=== PATIENT | female | born 1960 | race Caucasian/White ===

== ENCOUNTER 2018-11-20 07:55 | Emergency (ER) | payer SELFPAY ==
[2018-11-20] MEDS ORDERED: Acetaminophen 325 MG Tab PO ONE ×2 (08:10→09:08)
--- NOTE | 2018-11-20 09:00 | EDM.PDOC ---
ED HPI GENERAL MEDICAL PROBLEM - General Chief Complaint: Fever Stated Complaint: CHILLS, SHORT OF BREATH Time Seen by Provider: 11/20/18 08:30 Source of Information: Reports: Patient History Limitations: Reports: No Limitations - History of Present Illness INITIAL COMMENTS - FREE TEXT/NARRATIVE: 58-year-old female presents emergency room brought in with a friend today with complaints of fever and chills. Her symptoms began a proximally 6:30 this morning. She took 2 ibuprofen. She denies any recent illnesses. She has no nausea vomiting diarrhea abdominal pain. No sore throat denies any significant aches or pains. She does feel little short of breath. She did notice of frequent urination denies any dysuria, hematuria. She denies any current chest pain. She denies sinus congestion, ear pain. She has mild headache. Upon arrival her temperature was 101.6. She is not tachycardic. Blood pressure was mildly elevated. Onset: Today Onset Date: 11/20/18 Onset Time: 06:00 Duration: Hour(s): Location: Reports: Generalized Quality: Reports: Ache Severity: Mild Improves with: Reports: None Worsens with: Reports: None Associated Symptoms: Reports: Fever/Chills, Shortness of Breath. Denies: Chest Pain, Cough, Diaphoresis, Headaches, Nausea/Vomiting, Syncope Treatments LINING FINISHER: Reports: Acetaminophen, NSAIDS - Related Data Allergies Allergy/AdvReac Type Severity Reaction Status Date / Time No Known Allergies Allergy Verified 11/20/18 08:06 Home Meds: Home Meds Simvastatin [Zocor] 20 mg PO BEDTIME 07/31/13 [History] Acetaminophen [Tylenol Extra Strength] 1,000 mg PO Q6H PRN 11/17/13 [History] Desmopressin [Desmopressin 0.1% Nasal [place]] 1 spray NASLF BID 11/17/13 [History ] Lisinopril [Prinivil] 20 mg PO BID 11/17/13 [History] Levothyroxine [Levothroid] 137 mcg PO DAILY #30 tab 11/19/13 [Rx] Verapamil HCl [Verapamil ER] 240 mg PO DAILY 05/21/14 [History] Past Medical History HEENT History: Reports: Impaired Vision, Other (See Below) Other HEENT History: Hystiocytosis Cardiovascular History: Reports: Afib, High Cholesterol, Hypertension Respiratory History: Reports: Sleep Apnea Gastrointestinal History: Reports: None Genitourinary History: Reports: None EMERGENCY VEHICLE TECHNICIAN History: Reports: Other EMERGENCY VEHICLE TECHNICIAN History: times 2 Musculoskeletal History: Reports: Back Pain, Chronic, Other (See Below) Other Musculoskeletal History: chronic bilateral hip pain Neurological History: Reports: None Psychiatric History: Reports: Anxiety Endocrine/Metabolic History: Reports: Hypothyroidism, Obesity/BMI 30+ Hematologic History: Reports: None Immunologic History: Reports: None Oncologic (Cancer) History: Reports: Hodgkin's Lymphoma, Thyroid Dermatologic History: Reports: None - Infectious Disease History Infectious Disease History: Reports: Other (See Below) - Past Surgical History GI Surgical History: Reports: None Female Surgical History: Reports: Section Endocrine Surgical History: Reports: Thyroidectomy Social & Family History - Family History Family Medical History: Noncontributory - Tobacco Use Smoking Status *Q: Current Every Day Smoker Years of Tobacco use: 37 Packs/Tins Daily: 0.7 - Caffeine Use Caffeine Use: Reports: Coffee, Tea - Recreational Drug Use Recreational Drug Use: No - Living Situation & Occupation Living situation: Reports: Occupation: Employed ED ROS GENERAL - Review of Systems Review Of Systems: See Below Constitutional: Reports: Fever, Chills. Denies: Diaphoresis HEENT: Denies: Ear Pain, Sinus Problem, Throat Pain, Throat Swelling Respiratory: Reports: Shortness of Breath. Denies: Wheezing, Cough Cardiovascular: Reports: Blood Pressure Problem. Denies: Chest Pain, Dyspnea on Exertion Endocrine: Reports: No Symptoms GI/Abdominal: Denies: Abdominal Pain, Diarrhea, Nausea, Vomiting : Reports: Frequency. Denies: Dysuria, Hematuria, Pain Musculoskeletal: Denies: Neck Pain Skin: Reports: No Symptoms Neurological: Denies: Headache, Trouble Speaking, Weakness, Change in Speech Psychiatric: Reports: Anxiety Hematologic/Lymphatic: Reports: No Symptoms Immunologic: Reports: No Symptoms ED EXAM, GENERAL - Physical Exam Exam: See Below Exam Limited By: No Limitations General Appearance: Alert, No Apparent Distress, Obese Eye Exam: Bilateral Eye: EOMI, PERRL Ears: Normal External Exam, Normal Canal, Hearing Grossly Normal, Normal TMs Nose: Normal Inspection, Normal Mucosa Throat/Mouth: Normal Inspection, Normal Lips, Normal Oropharynx, Normal Voice, No Airway Compromise Head: Atraumatic, Normocephalic Neck: Normal Inspection, Supple, Non-Tender, Full Range of Motion, Other (Well- healed incision consistent with prior thyroidectomy). No: Lymphadenopathy (L), Lymphadenopathy (R) Respiratory/Chest: No Respiratory Distress, Lungs Clear Cardiovascular: Regular Rate, Rhythm, No Murmur Peripheral Pulses: 1+: Dorsalis Pedis (L), Dorsalis Pedis (R), 2+: Carotid (L), Carotid (R), Radial (L), Radial (R) GI/Abdominal: Normal Bowel Sounds, Soft, Non-Tender, No Organomegaly, No Distention Back Exam: Normal Inspection Extremities: Pedal Edema Neurological: Alert, Oriented, CN II-XII Intact, Normal Cognition, No Motor/ Sensory Deficits Psychiatric: Normal Affect, Normal Mood Skin Exam: Dry, Intact, Normal Color, No Rash, Increased Warmth Lymphatic: No Adenopathy Course - Vital Signs Last Recorded V/S: Last Vital Signs Temp 100.6 F 11/20/18 10:13 Pulse 93 11/20/18 08:10 Resp 20 11/20/18 08:10 BP 160/74 H 11/20/18 09:03 Pulse Ox 95 11/20/18 08:10 - Orders/Labs/Meds Labs: Laboratory Tests 11/20/18 11/20/18 11/20/18 Range/Units 08:55 08:55 09:00 WBC 14.46 H (5.00-10.00) 10^3/uL RBC 4.06 (3.80-5.50) 10^6/uL Hgb 13.7 (12.0-16.0) g/dL Hct 40.3 (37.0-47.0) % MCV 99.3 H D (82.0-92.0) fL MCH 33.7 H (27.0-31.0) pg MCHC 34.0 (32.0-36.0) g/dL RDW 13.0 (11.5-14.5) % Plt Count 241 (150-400) 10^3/uL MPV 8.8 (7.4-10.4) fL Immature Gran % (Auto) 0.2 (0.0-5.0) % Neut % (Auto) 88.1 H (50.0-70.0) % Lymph % (Auto) 4.2 L (20.0-40.0) % [place] % (Auto) 7.1 (2.0-8.0) % Eos % (Auto) 0.2 L (1.0-3.0) % Baso % (Auto) 0.2 (0.0-1.0) % Immature Gran # (Auto) 0.03 (0.00-0.50) 10^3/uL Neut # (Auto) 12.73 H (2.50-7.00) 10^3/uL Lymph # (Auto) 0.61 L (1.00-4.00) 10^3/uL [place] # (Auto) 1.03 H (0.10-0.80) 10^3/uL Eos # (Auto) 0.03 L (0.10-0.30) 10^3/uL Baso # (Auto) 0.03 (0.00-0.10) 10^3/uL Sodium 140 (136-145) mmol/L Potassium 3.9 (3.3-5.3) mmol/L Chloride 105 (98-115) mmol/L Carbon Dioxide 23.7 (21.0-32.0) mmol/L Anion Gap 15.2 H (5-15) mmol/L BUN 17 (6-25) mg/dL Creatinine 0.59 (0.51-1.17) mg/dL Est Cr Clr Drug Dosing 102.30 mL/min Estimated GFR (MDRD) > 60 mL/min Glucose 89 (75 - 99) mg/dL Calcium 9.0 (8.7-10.3) mg/dL Specimen Type . Urine Color Yellow (YELLOW) Urine Appearance Clear (CLEAR) Urine pH 7.0 (5.0-9.0) Ur Specific [place] 1.015 (1.005-1.030) Urine Protein Negative (NEGATIVE) mg/dL Urine Glucose (UA) Negative (NEGATIVE) mg/dL Urine Ketones Negative (NEGATIVE) mg/dL Urine Occult Blood Small H (NEGATIVE) Urine Nitrite Negative (NEGATIVE) Urine Bilirubin Negative (NEGATIVE) Urine Urobilinogen 0.2 (0.2-1.0) E.U./dL Ur Leukocyte Esterase Negative (NEGATIVE) Urine RBC 10-20 H (0-5) /HPF Urine WBC 0-5 (0-5) /HPF Ur Epithelial Cells Occasional /LPF Urine Bacteria Rare (NONE TO FEW) /HPF Meds: Medications Discontinued Medications Generic Name Dose Route Start Last Admin Trade Name Nalini PRN Reason Stop Dose Admin Acetaminophen 650 mg 11/20/18 08:10 11/20/18 08:15 Tylenol PO 11/20/18 08:11 650 mg NOW ONE Administration Acetaminophen 650 mg 11/20/18 09:08 11/20/18 09:10 Tylenol PO 11/20/18 09:09 650 mg NOW ONE Administration - Radiology Interpretation Free Text/Narrative:: Chest x-ray 2 views PA and lateral Discussion: Cardiomediastinal silhouette is normal in size and contour. No infiltrate, effusion, pneumothorax, or edema Impression: Negative examination of the chest - Re-Assessments/Exams Free Text/Narrative Re-Assessment/Exam: 11/20/18 10:24 Patient's temperature is now 100.6 with a Tylenol. She is no longer experiencing chills. Departure - Departure Time of Disposition: 10:26 Disposition: Home, Self-Care 01 Condition: Good Clinical Impression: Fever and chills, Neutrophilic leukocytosis, Upper respiratory infection, acute - Discharge Information Instructions: Fever, Adult, Upper Respiratory Infection, Adult, [id number] Referrals: PCP,Unknown [Primary Care Provider] - Forms: ED Department Discharge - Assessment/Plan Assessment:: Neutrophilic leukocytosis Fever Probable upper respiratory infection Plan: 1. Tylenol thousand milligrams every 6-8 hours for fevers. 2. Ibuprofen 800 mg every 8 hours for aches, pains, or fevers. 3. Z-Hugh 2 by mouth today 1 by mouth for the next 4 days. 4. Continue with the oral hydration. 5. Rest 6. Follow-up your primary care next week if symptoms do not seem to be improving.
[2018-11-20 09:09] VITALS: BP 160/74
[2018-11-20 09:25] LABS: ANION GAP 15.2 mmol/L (5-15); CHLORIDE,CL 105 mmol/L (98-115); SODIUM,NA 140 mmol/L (136-145)
--- NOTE | 2018-11-20 10:54 | CR ---
[id number] RAD/RAD Chest PA And Lateral EXAM: RAD Chest PA And Lateral INDICATION: FEVER, SOB COMPARISON: July 2013. DISCUSSION: Cardiomediastinal silhouette is normal in size and contour. No infiltrate, effusion, pneumothorax, or edema. IMPRESSION: Negative examination of the chest. Ramesh Sandoval MD 11/20/18 1053 Thank you for allowing us to participate in the care of your patient.
== END 2018-11-20 10:23 | disposition home or self-care (01) ==
LOC: KA.ED 07:55
DX: J06.9 Acute upper respiratory infection, unspecified (principal); D72.829 Elevated white blood cell count, unspecified; I10 Essential (primary) hypertension; I48.91 Unspecified atrial fibrillation; E03.9 Hypothyroidism, unspecified; E66.9 Obesity, unspecified; F17.210 Nicotine dependence, cigarettes, uncomplicated; Z79.899 Other long term (current) drug therapy; Z85.71 Personal history of Hodgkin lymphoma
CPT/HCPCS: 36415; 71046; 80048; 81001; 85025; 99283; A9270

== ENCOUNTER 2020-10-21 17:10 | Emergency (ER) | payer BC ==
[2020-10-21 17:21] VITALS: BP 114/68; PULSE 87
--- NOTE | 2020-10-21 17:36 | EDM.PDOC ---
ED HPI GENERAL MEDICAL PROBLEM - General Chief Complaint: Allergic Reaction Stated Complaint: FEVER Time Seen by Provider: 10/21/20 17:14 Source of Information: Reports: Patient History Limitations: Reports: No Limitations - History of Present Illness INITIAL COMMENTS - FREE TEXT/NARRATIVE: Patient presents with itchy rash on upper arms, upper back, abdomen, chest, perineum for 4 days. She also has a fever the last two days. She has had a little dyspnea and is scheduled for a chemical stress test tomorrow in [place]. She had jaw tightness earlier today that resolved. No other new symptoms in chest, neck, shoulder or arms. She says the skins feels like past episodes of cellulitis in her legs. She thinks it must be an allergic reaction but can't think of anything she has changed or used recently. She has tried Benadryl without much help. Treatments COMMISSIONING ENGINEER: Reports: Other Medication(s) - Related Data Allergies Allergy/AdvReac Type Severity Reaction Status Date / Time No Known Allergies Allergy Verified 10/21/20 17:14 Home Meds: Home Meds Simvastatin [Zocor] 20 mg PO BEDTIME 07/31/13 [History] Acetaminophen [Tylenol Extra Strength] 1,000 mg PO Q6H PRN 11/17/13 [History] Desmopressin [Desmopressin 0.1% Nasal [place]] 1 spray NASLF BID 11/17/13 [History] lisinopriL [Prinivil] 20 mg PO BID 11/17/13 [History] Levothyroxine [Levothroid] 137 mcg PO DAILY #30 tab 11/19/13 [Rx] Verapamil HCl [Verapamil ER] 240 mg PO DAILY 05/21/14 [History] amLODIPine [Norvasc] 10 mg PO DAILY 10/21/20 [History] Past Medical History HEENT History: Reports: Impaired Vision, Other (See Below) Other HEENT History: Hystiocytosis Cardiovascular History: Reports: Afib, High Cholesterol, Hypertension Respiratory History: Reports: Sleep Apnea Gastrointestinal History: Reports: None Genitourinary History: Reports: None DEVIL TENDER History: Reports: Other DEVIL TENDER History: times 2 Musculoskeletal History: Reports: Back Pain, Chronic, Other (See Below) Other Musculoskeletal History: chronic bilateral hip pain Neurological History: Reports: None Psychiatric History: Reports: Anxiety Endocrine/Metabolic History: Reports: Hypothyroidism, Obesity/BMI 30+ Hematologic History: Reports: None Immunologic History: Reports: None Oncologic (Cancer) History: Reports: Hodgkin's Lymphoma, Thyroid Dermatologic History: Reports: None - Infectious Disease History Infectious Disease History: Reports: Other (See Below) - Past Surgical History GI Surgical History: Reports: None Female Surgical History: Reports: Section Endocrine Surgical History: Reports: Thyroidectomy Social & Family History - Family History Family Medical History: No Pertinent Family History - Caffeine Use Caffeine Use: Reports: Coffee, Tea - Living Situation & Occupation Living situation: Reports: Occupation: Employed ED ROS ALLERGIC REACTION - Review of Systems Review Of Systems: See Below Constitutional: Reports: Fever. Denies: Chills, Malaise, Weakness HEENT: Reports: Other (no airway difficulty). Denies: Ear Pain, Throat Pain, Vision Change Respiratory: Reports: Shortness of Breath Cardiovascular: Denies: Chest Pain, Lightheadedness, Syncope GI/Abdominal: Denies: Abdominal Pain, Diarrhea, Vomiting : Denies: Dysuria, Flank Pain Musculoskeletal: Denies: Neck Pain, Shoulder Pain, Arm Pain, Back Pain, Hand Pain Skin: Denies: Cyanosis, Jaundice, Mottled, Pallor, Diaphoresis Neurological: Denies: Confusion, Dizziness, Headache, Seizure, Syncope, Trouble Speaking (except when her jaw was tight), Difficulty Walking Psychiatric: Denies: Agitation, Anxiety, Confusion ED EXAM GENERAL NO PERIP PULSE - Physical Exam Exam: See Below Exam Limited By: No Limitations General Appearance: Alert, WD/WN, No Apparent Distress Eye Exam: Bilateral Eye: EOMI, Normal Inspection, PERRL Ears: Normal External Exam, Hearing Grossly Normal Nose: Normal Inspection, No Blood Throat/Mouth: Normal Inspection, Normal Lips, Normal Voice, No Airway Compromise Head: Atraumatic, Normocephalic Neck: Normal Inspection, Full Range of Motion Respiratory/Chest: No Respiratory Distress, Lungs Clear, Normal Breath Sounds, No Accessory Muscle Use. No: Crackles, Rales, Rhonchi, Wheezing, Stridor Cardiovascular: Regular Rate, Rhythm, Systolic Murmur (mild) GI/Abdominal: Normal Bowel Sounds, Soft, Non-Tender, No Organomegaly, No Distention Back Exam: Normal Inspection, Full Range of Motion. No: CVA Tenderness (L), CVA Tenderness (R) Extremities: Normal Inspection, Normal Range of Motion, Non-Tender Neurological: Alert, Oriented, Normal Cognition, No Motor/Sensory Deficits Psychiatric: Normal Affect, Normal Mood Skin Exam: Warm, Dry, Intact, Rash (erythematous, maculopapular, rash with appearance in some places of urticaria (posterior upper arms/axillae)). No: Mottled, Pallor, Petechiae Course - Vital Signs Last Recorded V/S: Last Vital Signs Temp 103.4 F H 10/21/20 19:53 Pulse 87 10/21/20 17:15 Resp 20 10/21/20 17:15 BP 114/68 10/21/20 17:15 Pulse Ox 95 10/21/20 17:15 - Orders/Labs/Meds Orders: Active Orders 24 hr Category Date Time Status Chest 2V [CR] Stat Exams 10/21/20 17:30 Ordered Labs: Laboratory Tests 10/21/20 10/21/20 10/21/20 Range/Units 17:55 18:41 18:41 WBC 7.72 (5.00-10.00) 10^3/uL RBC 4.46 (3.80-5.50) 10^6/uL Hgb 14.6 (12.0-16.0) g/dL Hct 43.8 (37.0-47.0) % MCV 98.2 H (82.0-92.0) fL MCH 32.7 H (27.0-31.0) pg MCHC 33.3 (32.0-36.0) g/dL RDW 13.1 (11.5-14.5) % Plt Count 197 (150-400) 10^3/uL MPV 8.4 (7.4-10.4) fL Immature Gran % (Auto) 0.3 (0.0-5.0) % Neut % (Auto) 77.9 H (50.0-70.0) % Lymph % (Auto) 11.7 L (20.0-40.0) % [place] % (Auto) 7.9 (2.0-8.0) % Eos % (Auto) 2.1 (1.0-3.0) % Baso % (Auto) 0.1 (0.0-1.0) % Neut # (Auto) 6.02 (2.50-7.00) 10^3/uL Lymph # (Auto) 0.90 L (1.00-4.00) 10^3/uL [place] # (Auto) 0.61 (0.10-0.80) 10^3/uL Eos # (Auto) 0.16 (0.10-0.30) 10^3/uL Baso # (Auto) 0.01 (0.00-0.10) 10^3/uL Immature Gran # (Auto) 0.02 (0.00-0.50) 10^3/uL Sodium 139 (136-145) mmol/L Potassium 3.8 (3.5-5.1) mmol/L Chloride 100 (98-107) mmol/L Carbon Dioxide 27.0 (21.0-32.0) mmol/L Anion Gap 15.8 H (5-15) mmol/L BUN 11 (7-18) mg/dL Creatinine 0.79 (0.51-1.17) mg/dL Est Cr Clr Drug Dosing 77.35 mL/min Estimated GFR (MDRD) > 60 mL/min Glucose 92 (70-140) mg/dL Calcium 9.1 (8.7-10.3) mg/dL Troponin I High Sens 6.400 (0-51.000) pg/mL Specimen Type Urincc Urine Color Dark yellow H (YELLOW) Urine Appearance Clear (CLEAR) Urine pH 6.0 (5.0-9.0) Ur Specific [place] 1.020 (1.005-1.030) Urine Protein Trace H (NEGATIVE) mg/dL Urine Glucose (UA) Negative (NEGATIVE) mg/dL Urine Ketones Negative (NEGATIVE) mg/dL Urine Occult Blood Moderate H (NEGATIVE) Urine Nitrite Negative (NEGATIVE) Urine Bilirubin Small H (NEGATIVE) Urine Urobilinogen 2.0 H (0.2-1.0) E.U./dL Ur Leukocyte Esterase Negative (NEGATIVE) Urine RBC 0-5 (0-5) /HPF Urine WBC 5-10 H (0-5) /HPF Ur Epithelial Cells Moderate H /LPF Amorphous Sediment Few (0/HPF) /HPF Urine Bacteria Rare (NONE TO FEW) /HPF Meds: Medications Discontinued Medications Generic Name Dose Route Start Last Admin Trade Name Freq PRN Reason Stop Dose Admin Acetaminophen 1,000 mg 10/21/20 19:44 10/21/20 19:53 Acetaminophen 500 Mg Tab PO 10/21/20 19:45 1,000 mg ONETIME ONE Administration Cephalexin 1,500 mg 10/21/20 19:44 10/21/20 19:51 Cephalexin 250 Mg Cap PO 10/21/20 19:45 500 mg ONETIME ONE Administration Diphenhydramine HCl 25 mg 10/21/20 19:50 10/21/20 19:56 Diphenhydramine 25 Mg Cap PO 10/21/20 19:51 25 mg ONETIME ONE Administration Lorazepam 0.5 mg 10/21/20 18:07 10/21/20 18:38 Lorazepam 0.5 Mg Tab PO 10/21/20 18:08 0.5 mg ONETIME ONE Administration Prednisone 40 mg 10/21/20 19:44 10/21/20 19:52 Prednisone 20 Mg Tab PO 10/21/20 19:45 40 mg ONETIME ONE Administration - Re-Assessments/Exams Free Text/Narrative Re-Assessment/Exam: 10/21/20 19:56 WBC 7.7, normal BMP, 5-10 WBCs in urine but no other evidence of a UTI. Patient's temp went up to 103 and she is still very itchy. She is finishing a bottle of water and we will give a second with some meds. Giving Tylenol 1000mg, Benadryl 25mg, Prednisone 40 mg, and Cephalexin 500 mg. I don't see any definite cellulitis and WBC is normal but will cover a possible developing cellulitis with her fever and history of cellulitis that felt similar to today. The itchy rash will hopefully respond to the steroid and Benadryl. Will have her follow up tomorrow in clinic for recheck if fever isn't improving. Discussed findings and treatment plan with patient. 10/21/20 20:05 Rxs for Prednisone 20 mg #10, 2 po qd x 5, Cephalexin 500 mg #30, 1 po q8h x 10 days. 10/21/20 20:18 Oral temp now 102.2 and patient feels ready to go home. She is discharged to home in stable condition. Departure - Departure Time of Disposition: 20:18 Disposition: Home, Self-Care 01 Condition: Good Clinical Impression: Acute maculopapular rash, Pruritic erythematous rash, Fever and chills - Discharge Information Instructions: Rash, Adult, [id number] Referrals: Eleni Maddox, HVAC OPERATIONS TECHNICIAN [Primary Care Provider] - Forms: ED Department Discharge Additional Instructions: Drink at least 8 cups of water daily. Take the medications as directed. Follow up tomorrow with your PCP if the fever isn't improving or if other symptoms are not improving yet. Return to ER if worsening before you can see your PCP. Sepsis Event Note (ED) - Evaluation Sepsis Screening Result: No Definite Risk - Focused Exam Vital Signs: Vital Signs Temp Temp Pulse Resp BP Pulse Ox 10/21/20 19:53 103.4 F H 10/21/20 17:15 101.4 F H 87 20 114/68 95 - My Orders Last 24 Hours: My Active Orders 10/21/20 17:30 Chest 2V [CR] Stat - Assessment/Plan Last 24 Hours: My Active Orders 10/21/20 17:30 Chest 2V [CR] Stat
[2020-10-21] MEDS ORDERED: LORazepam 0.5 MG Tab PO ONE (18:07)
[2020-10-21 19:09] LABS: ANION GAP 15.8 mmol/L (5-15); CHLORIDE,CL 100 mmol/L (98-107); SODIUM,NA 139 mmol/L (136-145)
[2020-10-21] MEDS ORDERED: Acetaminophen 500 MG Tab PO ONE (19:44)
[2020-10-21] MEDS ORDERED: Cephalexin 250 MG Cap PO ONE (19:44)
[2020-10-21] MEDS ORDERED: predniSONE 20 MG Tab PO ONE (19:44)
[2020-10-21] MEDS ORDERED: diphenhydrAMINE 25 MG Cap PO ONE (19:50)
== END 2020-10-21 20:30 | disposition home or self-care (01) ==
LOC: KA.ED 17:10
DX: R23.8 Other skin changes (principal); R50.9 Fever, unspecified; I48.91 Unspecified atrial fibrillation; E78.00 Pure hypercholesterolemia, unspecified; I10 Essential (primary) hypertension; E03.9 Hypothyroidism, unspecified; E66.9 Obesity, unspecified; Z68.41 Body mass index [BMI] 40.0-44.9, adult; Z79.899 Other long term (current) drug therapy
CPT/HCPCS: 36415; 71046; 80048; 81001; 84484; 85025; 99283-25; 99284; A9270-GY; J7512

== ENCOUNTER 2020-10-23 17:35 | Observation (INO) | payer BC ==
[2020-10-23] MEDS ORDERED: Sodium Chloride 0.9% 10 ML Syringe FLUSH PRN (17:39)
[2020-10-23] MEDS ORDERED: Metoprolol Tartrate 5 MG/5 ML SDV IVPUSH ONE ×2 (17:41→18:30)
--- NOTE | 2020-10-23 17:43 | EDM.PDOC ---
ED HPI GENERAL MEDICAL PROBLEM - General Chief Complaint: Cardiovascular Problem Stated Complaint: chest pain Time Seen by Provider: 10/23/20 17:39 Source of Information: Reports: Patient - History of Present Illness INITIAL COMMENTS - FREE TEXT/NARRATIVE: Eleni, 60-year-old female, presents via ambulance from the [facility] here in [place] after she was being seen for chest pressure. She had been initially running fever and not feeling well today, stating her heart "was flip-flopping". She was advised to seek immediate treatment but deferred that to present to her provider at the clinic this afternoon. Covid screening negative. She presents via ambulance after they were unsuccessful with IV start and blood draw secondary of vascular access. She had cardiac ablation roughly 5 years ago and stated initially doing very well, with the last few years having more issues but, remaining in sinus. She had been seen in the clinic in September secondary of some questionable cardiac issues at which time her EKG showed ST depression and was scheduled for a stress test. This test was to be done yesterday and secondary of her not feeling well it was deferred and rescheduled. Today she presents with EKG changes and sequela of sinus tachycardia with T wave inversion in some leads. She had been treated with baby aspirin and nitroglycerin x1 in the clinic which seemingly resolved her discomfort and made her hypotensive. Blood pressure was 92/63. Onset: Today, Sudden Duration: Hour(s):, Getting Worse Location: Reports: Chest legs Pain Score (Numeric/FACES): 6 - Related Data Allergies Allergy/AdvReac Type Severity Reaction Status Date / Time adhesive Allergy Mild Rash Verified 10/23/20 18:05 Home Meds: Home Meds Acetaminophen [Tylenol Extra Strength] 1,000 mg PO Q6H PRN 11/17/13 [History] Desmopressin [Desmopressin 0.1% Nasal [place]] 1 spray NASRT BID 11/17/13 [History] lisinopriL [Prinivil] 40 mg PO BID 11/17/13 [History] Verapamil HCl [Verapamil ER] 240 mg PO DAILY 05/21/14 [History] Diclofenac Sodium [Voltaren] 75 mg PO BID PRN 10/23/20 [History] Levothyroxine 125 mcg PO ACBREAKFAST 10/23/20 [History] Simvastatin [Zocor] 20 mg PO BEDTIME 10/23/20 [History] amLODIPine Besylate [Norvasc] 2.5 mg PO DAILY 10/23/20 [History] cephALEXin [Keflex] 500 mg PO Q8H 10/23/20 [History] diphenhydrAMINE [Benadryl] 50 mg PO Q6HR PRN 10/23/20 [History] Past Medical History HEENT History: Reports: Impaired Vision, Other (See Below) Other HEENT History: Hystiocytosis Cardiovascular History: Reports: Afib, High Cholesterol, Hypertension, Other (See Below) (Ablation for a-fib 12-06-2013) Respiratory History: Reports: Sleep Apnea Gastrointestinal History: Reports: None Genitourinary History: Reports: None 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 Musculoskeletal History: Reports: Back Pain, Chronic, Other (See Below) Other Musculoskeletal History: chronic bilateral hip pain Neurological History: Reports: None Psychiatric History: Reports: Anxiety Endocrine/Metabolic History: Reports: Hypothyroidism, Obesity/BMI 30+, Other (See Below) (diabetes insipidus treated with DDAVP) Hematologic History: Reports: None Immunologic History: Reports: None Oncologic (Cancer) History: Reports: Hodgkin's Lymphoma, Thyroid Dermatologic History: Reports: Chronic Cellulitis - Infectious Disease History Infectious Disease History: Reports: Chicken Pox, Mumps, Other (See Below) (Borrelia burgdorferi (Lyme disease)) - Past Surgical History Cardiovascular Surgical History: Reports: Cardiac Ablation GI Surgical History: Reports: None Female Surgical History: Reports: Section Endocrine Surgical History: Reports: Thyroidectomy Social & Family History - Family History Family Medical History: No Pertinent Family History - Tobacco Use Tobacco Use Within Last Twelve Months: No - Caffeine Use Caffeine Use: Reports: Coffee, Tea - Living Situation & Occupation Living situation: Reports: Occupation: Employed ED ROS GENERAL - Review of Systems Review Of Systems: Comprehensive ROS is negative, except as noted in HPI. Constitutional: Reports: Fever Cardiovascular: Reports: Palpitations ED EXAM, GENERAL - Physical Exam Exam: See Below Free Text/Narrative:: Alert, oriented, in mild distress. She arrives per ambulance with all staff present in the department upon her arrival. HEENT is negative to discharge or deformity. PERRLA no icterus no injection. [place] moist mucous membranes. Neck is soft supple with no lymphadenopathy I do not appreciate JVD nor bruit. Thorax overall clear with fine rhonchi. Cardiac is S1-S2 tachycardic in the 1 20-1 30 range. Abdomen is rotund soft no tenderness with active bowel sounds. There is +1 edema to the lower extremities with chronic vascular color changes left greater than right. Negative Tom's sign bilateral. There is a maculopapular reddened rash present to the forearms and parts of the trunk as well as lower extremity. She states this is not pruritic today. rectal was deferred. #1 Interpretation EKG Date: 10/23/20 Time: 17:44 Rhythm: NSR Rate (Beats/Min): 134 [place]: Other P-Wave: Present QRS: Normal ST-T: Depressed QT: Normal Comparison: Change From Previous EKG (compared to [facility] today prio to arrival) #2 Interpretation EKG Date: 10/23/20 Time: 20:10 Rhythm: NSR Rate (Beats/Min): 129 Comparison: Change From Previous EKG Course - Vital Signs Last Recorded V/S: Last Vital Signs Temp 100.5 F 10/23/20 20:44 Pulse 129 H 10/23/20 20:44 Resp 28 H 10/23/20 20:44 BP 130/86 10/23/20 19:59 Pulse Ox 93 L 10/23/20 20:44 - Orders/Labs/Meds Orders: Active Orders 24 hr Category Date Time Status Oxygen Therapy [RC] PRN Care 10/23/20 17:39 Active Peripheral IV Care [RC] . DIRECTED Care 10/23/20 17:40 Active Enoxaparin [Lovenox] Med 10/23/20 21:00 Active 100 mg SUBCUT Q12H Sodium Chloride 0.9% [Normal Saline] 1,000 ml Med 10/23/20 20:32 Active IV .BOLUS Sodium Chloride 0.9% [Normal Saline] 100 ml Med 10/23/20 19:45 Active IV ASDIRECTED Sodium Chloride 0.9% [Saline Flush] Med 10/23/20 17:39 Active 10 ml FLUSH Q8HR PRN Peripheral IV Insertion Adult [OM.PC] Routine Oth 10/23/20 17:39 Ordered EKG 12 Lead [EK] Urgent Ther 10/23/20 17:39 Stop Req EKG 12 Lead [EK] Urgent Ther 10/23/20 20:07 Stop Req Medication Orders Acetaminophen (Acetaminophen 500 Mg Tab) 1,000 mg PO Q6H PRN PRN Reason: Fever Greater Than 101 Acetaminophen (Acetaminophen 500 Mg Tab) 1,000 mg PO Q6H PRN PRN Reason: Pain Diphenhydramine HCl (Diphenhydramine 25 Mg Cap) 50 mg PO Q6HR PRN PRN Reason: Itching Enoxaparin Sodium (Enoxaparin 100 Mg/1 Ml Syringe) 100 mg SUBCUT Q12H YAJAIRA Sodium Chloride (Normal Saline) 100 mls @ 200 mls/hr IV ASDIRECTED YAJAIRA Last Admin: 10/23/20 19:07 Dose: 200 mls/hr Documented by: MODE Sodium Chloride (Normal Saline) 1,000 mls @ 999 mls/hr IV .BOLUS ONE Stop: 10/23/20 21:32 Last Admin: 10/23/20 20:43 Dose: 999 mls/hr Documented by: [id number] Diltiazem HCl 125 mg/ Sodium (Chloride) 125 mls @ 5 mls/hr IV TITRATE YAJAIRA Metoprolol Succinate (Metoprolol Succinate 50 Mg Tab.Er) 50 mg PO ONETIME ONE Stop: 10/24/20 21:16 Non-Formulary Medication (Desmopressin) 1 spray NASRT BID YAJAIRA Non-Formulary Medication (Levothyroxine [Levothyroxine]) 125 mcg PO ACBREAKFAST YAJAIRA Sodium Chloride (Sodium Chloride 0.9% 10 Ml Syringe) 10 ml FLUSH Q8HR PRN PRN Reason: keep vein open Labs: Laboratory Tests 10/23/20 10/23/20 10/23/20 Range/Units 18:00 18:00 18:00 WBC 10.66 H (5.00-10.00) 10^3/uL RBC 4.83 (3.80-5.50) 10^6/uL Hgb 15.8 (12.0-16.0) g/dL Hct 45.7 (37.0-47.0) % MCV 94.6 H D (82.0-92.0) fL MCH 32.7 H (27.0-31.0) pg MCHC 34.6 (32.0-36.0) g/dL RDW 12.9 (11.5-14.5) % Plt Count 218 (150-400) 10^3/uL MPV 8.9 (7.4-10.4) fL Add Manual Diff Yes Neutrophils % (Manual) 83 H (50-70) % Lymphocytes % (Manual) 9 L (20-40) % Monocytes % (Manual) 2 (2-8) % Eosinophils % (Manual) 6 H (1-3) % Absolute Neutrophils 8.8478 Lymphocytes # (Manual) 0.9594 Monocytes # (Manual) 0.2132 Eosinophils # (Manual) 0.6396 APTT (22.8-31.4) SEC D-Dimer, Quantitative 3460 H (<400) ng/mL Sodium 133 L (136-145) mmol/L Potassium 4.0 (3.5-5.1) mmol/L Chloride 97 L (98-107) mmol/L Carbon Dioxide 23.8 (21.0-32.0) mmol/L Anion Gap 16.2 H (5-15) mmol/L BUN 13 (7-18) mg/dL Creatinine 0.79 (0.51-1.17) mg/dL Est Cr Clr Drug Dosing 77.35 mL/min Estimated GFR (MDRD) > 60 mL/min Glucose 75 (70-140) mg/dL Calcium 9.4 (8.7-10.3) mg/dL Total Bilirubin 0.5 (0.2-1.0) mg/dL AST 15 (15-37) U/L ALT 28 (14-63) U/L Alkaline Phosphatase 131 H (46-116) U/L Troponin I High Sens 10.500 (0-51.000) pg/mL Total Protein 8.1 (6.4-8.2) g/dL Albumin 3.52 (3.40-5.00) g/dL 10/23/20 Range/Units 18:00 WBC (5.00-10.00) 10^3/uL RBC (3.80-5.50) 10^6/uL Hgb (12.0-16.0) g/dL Hct (37.0-47.0) % MCV (82.0-92.0) fL MCH (27.0-31.0) pg MCHC (32.0-36.0) g/dL RDW (11.5-14.5) % Plt Count (150-400) 10^3/uL MPV (7.4-10.4) fL Add Manual Diff Neutrophils % (Manual) (50-70) % Lymphocytes % (Manual) (20-40) % Monocytes % (Manual) (2-8) % Eosinophils % (Manual) (1-3) % Absolute Neutrophils Lymphocytes # (Manual) Monocytes # (Manual) Eosinophils # (Manual) APTT 20.7 L (22.8-31.4) SEC D-Dimer, Quantitative (<400) ng/mL Sodium (136-145) mmol/L Potassium (3.5-5.1) mmol/L Chloride (98-107) mmol/L Carbon Dioxide (21.0-32.0) mmol/L Anion Gap (5-15) mmol/L BUN (7-18) mg/dL Creatinine (0.51-1.17) mg/dL Est Cr Clr Drug Dosing mL/min Estimated GFR (MDRD) mL/min Glucose (70-140) mg/dL Calcium (8.7-10.3) mg/dL Total Bilirubin (0.2-1.0) mg/dL AST (15-37) U/L ALT (14-63) U/L Alkaline Phosphatase (46-116) U/L Troponin I High Sens (0-51.000) pg/mL Total Protein (6.4-8.2) g/dL Albumin (3.40-5.00) g/dL Meds: Medications Generic Name Dose Route Start Last Admin Trade Name Freq PRN Reason Stop Dose Admin Acetaminophen 1,000 mg 10/23/20 21:04 Acetaminophen 500 Mg Tab PO Q6H PRN Fever Greater Than 101 Acetaminophen 1,000 mg 10/23/20 21:12 Acetaminophen 500 Mg Tab PO Q6H PRN Pain Diphenhydramine HCl 50 mg 10/23/20 21:12 Diphenhydramine 25 Mg Cap PO Q6HR PRN Itching Enoxaparin Sodium 100 mg 10/23/20 21:00 Enoxaparin 100 Mg/1 Ml Syringe SUBCUT Q12H YAJAIRA Sodium Chloride 100 mls @ 200 mls/hr 10/23/20 19:45 10/23/20 19:07 Normal Saline IV 200 mls/hr ASDIRECTED YAJAIRA Administration Sodium Chloride 1,000 mls @ 999 mls/hr 10/23/20 20:32 10/23/20 20:43 Normal Saline IV 10/23/20 21:32 999 mls/hr .BOLUS ONE Administration Diltiazem HCl 125 mg/ Sodium 125 mls @ 5 mls/hr 10/23/20 21:15 Chloride IV TITRATE YAJAIRA 5 MG/HR Metoprolol Succinate 50 mg 10/24/20 21:15 Metoprolol Succinate 50 Mg Tab.Er PO 10/24/20 21:16 ONETIME ONE Non-Formulary Medication 1 spray 10/24/20 09:00 Desmopressin NASRT BID YAJAIRA Non-Formulary Medication 125 mcg 10/24/20 07:30 Levothyroxine [Levothyroxine] PO ACBREAKFAST YAJAIRA Sodium Chloride 10 ml 10/23/20 17:39 Sodium Chloride 0.9% 10 Ml Syringe FLUSH Q8HR PRN keep vein open Discontinued Medications Generic Name Dose Route Start Last Admin Trade Name Freq PRN Reason Stop Dose Admin Acetaminophen 1,000 mg 10/23/20 19:24 10/23/20 19:27 Acetaminophen 500 Mg Tab PO 10/23/20 19:25 1,000 mg ONETIME ONE Administration Diltiazem HCl 20 mg 10/23/20 21:08 Diltiazem 25 Mg/5 Ml Sdv IVPUSH 10/23/20 21:09 ONETIME ONE Diphenhydramine HCl 50 mg 10/23/20 21:03 Diphenhydramine 25 Mg Cap PO 10/23/20 21:04 ONETIME ONE Hydrocortisone Sodium Succinate 100 mg 10/23/20 21:16 Hydrocortisone Sodium Succinate 100 Mg/2 Ml Sdv IVPUSH 10/23/20 21:17 ONETIME ONE Diltiazem HCl 125 mg/ Sodium 125 mls @ 20 mls/hr 10/23/20 21:00 Chloride IV TITRATE YAJAIRA 20 MG/HR Iopamidol 75 ml 10/23/20 19:33 10/23/20 19:07 Iopamidol 755 Mg/Ml 75 Ml Bottle IVPUSH 10/23/20 19:34 75 ml ONETIME ONE Administration Metoprolol Tartrate 2.5 mg 10/23/20 17:41 10/23/20 18:14 Metoprolol Tartrate 5 Mg/5 Ml Sdv IVPUSH 10/23/20 17:42 2.5 mg ONETIME ONE Administration Metoprolol Tartrate 5 mg 10/23/20 18:30 10/23/20 18:40 Metoprolol Tartrate 5 Mg/5 Ml Sdv IVPUSH 10/23/20 18:31 5 mg ONETIME ONE Administration - Radiology Interpretation Free Text/Narrative:: Chest x-ray negative for any acute cardiopulmonary abnormalities. CT Results Date: 10/23/20 (No evidence of PE, infiltrate, nodule nor mass.) CT Results Time: 19:56 - Re-Assessments/Exams Free Text/Narrative Re-Assessment/Exam: 10/23/20 18:11 Unsuccessful IV attempts for blood draws as well as IV start per [facility] presentation. 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 10/23/20 18:33 Initial Lopressor 2.5 mg slowed heart rate into the 1 teens to 120s showing what appears to be sinus tachycardia with ectopic beats/PACs. No evidence of atrial fibrillation. Heart rate remains tachycardic at this time and consideration for a 5 mg IV dose of Lopressor as her heart rate is 130 with a blood pressure 119/86 and saturations of 94%. Prior to this note when reassessed she states that she is feeling easier to breathe but still feels her heart beating rapidly although it seems to be more stable. Free Text/Narrative Re-Assessment/Exam: 10/23/20 20:07 No evidence of PE,, infiltrate, nodule nor mass. Heart rate increased again after Lopressor therapy, questionable A-Fib 10/23/20 20:22 Eleni recalls tick bite in September of this year after hunting. Previous Lyme diagnosis 25 years ago. Departure - Departure Time of Disposition: 21:17 Disposition: Refer to Observation Condition: Good Clinical Impression: Electrolyte imbalance, ST segment changes on electrocardiogram, Elevated d- dimer, Tachycardia, Fever and chills, COVID-19 ruled out by laboratory testing - Discharge Information *PRESCRIPTION DRUG MONITORING PROGRAM REVIEWED*: Not Applicable *COPY OF PRESCRIPTION DRUG MONITORING REPORT IN PATIENT JALEESA: Not Applicable Sepsis Event Note (ED) - Focused Exam Vital Signs: Vital Signs Temp Temp Pulse Pulse Resp BP BP 10/23/20 20:44 100.5 F 129 H 28 H 10/23/20 19:59 102.2 F H 130 H 22 H 130/86 10/23/20 19:57 102.2 F H 10/23/20 19:50 129 H 25 H 130/86 10/23/20 19:30 100.9 F H 123 H 24 H 128/85 10/23/20 19:27 100.9 F H 10/23/20 18:55 99.5 F 10/23/20 18:46 120 H 14 133/90 10/23/20 18:40 134 H 119/86 10/23/20 18:20 128 H 17 103/65 10/23/20 18:14 139 H 130/88 10/23/20 17:52 97 F 134 H 21 H 118/73 10/23/20 17:41 132 H 24 H 115/83 10/23/20 17:39 Pulse Ox Pulse Ox 10/23/20 20:44 93 L 10/23/20 19:59 94 L 10/23/20 19:57 10/23/20 19:50 95 10/23/20 19:30 95 10/23/20 19:27 10/23/20 18:55 10/23/20 18:46 93 L 10/23/20 18:40 10/23/20 18:20 93 L 10/23/20 18:14 10/23/20 17:52 96 10/23/20 17:41 97 10/23/20 17:39 96 ED Communication - ED Communication Date/Time Date: 10/23/20 Time Called: 20:23 - Discussed Case With (1) Discussed Case With (1): Other Provider Person/s Notified (1): Helen Latham - Discussed Case With (2) Discussed Case With (2): Admitting Provider Person/s Notified (3): Ailyn Molina Date: 10/23/20 Time Called: 08:50 - Problem List & Annotations (1) Chest pressure SNOMED Code(s): 043888066 Code(s): R07.89 - OTHER CHEST PAIN Status: Resolved Priority: Medium Current Visit: Yes (2) Tachycardia SNOMED Code(s): 3177263 Code(s): R00.0 - TACHYCARDIA, UNSPECIFIED Status: Acute Priority: High Current Visit: Yes (3) ST segment changes on electrocardiogram SNOMED Code(s): 01858387 Code(s): R94.31 - ABNORMAL ELECTROCARDIOGRAM [ECG] [EKG] Status: Acute Priority: High Current Visit: Yes (4) Elevated d-dimer SNOMED Code(s): 271534384 Code(s): R79.89 - OTHER SPECIFIED ABNORMAL FINDINGS OF BLOOD CHEMISTRY Status: Acute Priority: High Current Visit: Yes Onset Date: ~10/23/20 Annotation/Comment:: CTA (5) Electrolyte depletion SNOMED Code(s): 84138228 Code(s): E87.8 - OTH DISORDERS OF ELECTROLYTE AND FLUID BALANCE, NEC Status: Acute Priority: High Current Visit: Yes Annotation/Comment:: DDAVP treatment for DM insipidus most likely. (6) Electrolyte imbalance SNOMED Code(s): 919714268 Code(s): E87.8 - OTH DISORDERS OF ELECTROLYTE AND FLUID BALANCE, NEC Status: Acute Priority: High Current Visit: Yes Annotation/Comment:: DDAVP treatment for DM insipidus most likely. (7) COVID-19 ruled out by laboratory testing SNOMED Code(s): 414734203755460729, 443101750182951266 Code(s): Z20.822 - CONTACT WITH AND (SUSPECTED) EXPOSURE TO COVID-19 Status: Acute Priority: High Current Visit: Yes (8) Acute maculopapular rash SNOMED Code(s): 844007194 Code(s): R21 - RASH AND OTHER NONSPECIFIC SKIN ERUPTION Status: Chronic Priority: Medium Current Visit: Yes (9) Fever and chills SNOMED Code(s): 279887672 Code(s): R50.9 - FEVER, UNSPECIFIED Status: Chronic Priority: High Current Visit: Yes - Problem List Review Problem List Initiated/Reviewed/Updated: Yes - My Orders Last 24 Hours: My Active Orders 10/23/20 17:39 Oxygen Therapy [RC] PRN Sodium Chloride 0.9% [Saline Flush] 10 ml FLUSH Q8HR PRN Peripheral IV Insertion Adult [OM.PC] Routine EKG 12 Lead [EK] Urgent 10/23/20 17:40 Peripheral IV Care [RC] . DIRECTED 10/23/20 19:45 Sodium Chloride 0.9% [Normal Saline] 100 ml IV ASDIRECTED 10/23/20 20:07 EKG 12 Lead [EK] Urgent 10/23/20 20:32 Sodium Chloride 0.9% [Normal Saline] 1,000 ml IV .BOLUS 10/23/20 21:00 Enoxaparin [Lovenox] 100 mg SUBCUT Q12H - Assessment/Plan Last 24 Hours: My Active Orders 10/23/20 17:39 Oxygen Therapy [RC] PRN Sodium Chloride 0.9% [Saline Flush] 10 ml FLUSH Q8HR PRN Peripheral IV Insertion Adult [OM.PC] Routine EKG 12 Lead [EK] Urgent 10/23/20 17:40 Peripheral IV Care [RC] . DIRECTED 10/23/20 19:45 Sodium Chloride 0.9% [Normal Saline] 100 ml IV ASDIRECTED 10/23/20 20:07 EKG 12 Lead [EK] Urgent 10/23/20 20:32 Sodium Chloride 0.9% [Normal Saline] 1,000 ml IV .BOLUS 10/23/20 21:00 Enoxaparin [Lovenox] 100 mg SUBCUT Q12H Plan: Contact with Dr Anna Molina for discussion and admission.
--- NOTE | 2020-10-23 18:02 | CR ---
[id number] RAD/RAD Chest PA or AP 1V EXAM: RAD Chest PA or AP 1V INDICATION: CHEST PAIN RAPID RATE. COMPARISON: None. DISCUSSION: Cardiomediastinal silhouette is normal in size and contour. No infiltrate, effusion, pneumothorax, or edema. Pulmonary hyperinflation. IMPRESSION: No acute cardiopulmonary abnormality. Ben oTrres DO 10/23/20 1804 Thank you for allowing us to participate in the care of your patient.
[2020-10-23 18:36] LABS: ANION GAP 16.2 mmol/L (5-15); CHLORIDE,CL 97 mmol/L (98-107); SODIUM,NA 133 mmol/L (136-145)
[2020-10-23] MEDS ORDERED: Acetaminophen 500 MG Tab PO ONE (19:24)
[2020-10-23] MEDS ORDERED: Iopamidol 755 Mg/ML 75 ML Bottle IVPUSH ONE (19:33)
[2020-10-23] MEDS ORDERED: Sodium Chloride 0.9% 100 ML IV SCH (19:45)
--- NOTE | 2020-10-23 20:01 | CT ---
[id number] CT/CTA Chest EXAM: CT ANGIOGRAM CHEST INDICATION: CHEST PRESSURE, ELEVATED D DIMER COMPARISON: None. DISCUSSION: No large central or lobar pulmonary arterial filling defects to suggest acute pulmonary bones in. Evaluation of the segmental and subsegmental pulmonary arteries is limited secondary to suboptimal bolus and respiratory motion artifact. No secondary signs of acute pulmonary embolism. The lungs are clear with no nodule, infiltrate or mass identified.No pleural or pericardial effusion. Normal heart size. No mediastinal, hilar or axillary lymphadenopathy. The imaged upper abdomen and osseous structures are unremarkable. IMPRESSION: 1. No evidence of acute pulmonary embolism. Ben Torres DO 10/23/201999 Thank you for allowing us to participate in the care of your patient.
[2020-10-23] MEDS ORDERED: Sodium Chloride 0.9% 1,000 ML IV ONE (20:32)
[2020-10-23] MEDS ORDERED: Diltiazem 125 MG in Sodium Chloride 0.9% 100 ML IV SCH ×2 (21:00→21:15)
[2020-10-23] MEDS ORDERED: diphenhydrAMINE 25 MG Cap PO ONE (21:03)
[2020-10-23] MEDS ORDERED: Acetaminophen 500 MG Tab PO PRN ×2 (21:04→21:12)
[2020-10-23] MEDS ORDERED: Diltiazem 25 MG/5 ML SDV IVPUSH ONE (21:08)
[2020-10-23] MEDS ORDERED: diphenhydrAMINE 25 MG Cap PO PRN (21:12)
[2020-10-23] MEDS ORDERED: Hydrocortisone Sodium Succinate 100 MG/2 ML SDV IVPUSH ONE (21:16)
[2020-10-23] MEDS: Enoxaparin 100 MG/1 ML Syringe SUBCUT SCH (21:40)
[2020-10-23] MEDS ORDERED: Metoprolol Succinate 25 MG Tab.ER PO ONE (22:23)
[2020-10-23] MEDS ORDERED: Acetaminophen 325 MG Tab PO PRN (23:37)
[2020-10-23] MEDS: Sodium Chloride 0.9% 1,000 ML IV SCH (23:56)
[2020-10-24] MEDS ORDERED: Diltiazem 25 MG/5 ML SDV IVPUSH ONE ×2 (00:05→01:22)
[2020-10-24] MEDS: Diltiazem 125 MG in Sodium Chloride 0.9% 100 ML IV SCH ×2 (00:21→07:34)
--- NOTE | 2020-10-24 02:52 | HP ---
PATIENT PROFILE: The patient is a 60-year-old patient who lives in [place], [place]. HISTORY OF PRESENT ILLNESS: This 60-year-old female present to the ER Via ambulance from the [facility] after she was seen there for chest pressure. She had been initially running fever and not feeling well today. She has felt her heart was jumping and flip-flopping. She presents to the clinic, and she was seen and advised to come to the emergency room for further treatment. COVID screening was negative. The start of an IV was unsuccessful in the clinic. Present history also includes the fact that she just started to develop rash approximately six days ago. This was a diffuse rash present over the body. She also began to run a temperature two days after the rash. She was treated with cephalexin. Temperature still remains high. No complaints of cough, wheezing, etc. She did have some chest pain which was relieved by nitroglycerin. Past history includes cardiac ablation roughly five years ago. Last few years, however, she has been having some issues with this. She remains in sinus rhythm. The EKG performed in the clinic showed ST-segment depression, and she was scheduled to have a stress test. The stress test was to be done yesterday, but secondary to her not feeling well, it was rescheduled. EKG today shows sinus tachycardia with T-wave inversion in some leads. She had been treated with baby aspirin and nitroglycerin in the clinic which seemingly resolved her chest discomfort, but made her hypotensive. Blood pressure on admission emergency room was 92/63. PAST MEDICAL HISTORY: Eyes: Past history includes impaired vision. ENT: History of histiocytosis. Cardiovascular: Includes atrial fibrillation, high cholesterol, hypertension, ablation. Respiratory: Complains of sleep apnea. GI: No complaints. : No complaints. BOILER TUBE BLOWER: Negative for . two times. Musculoskeletal: Reports back pain, chronic. Otherwise negative. She also has bilateral chronic hip pain. Neurological: No complaints. Psychiatric: No complaints except for some increased anxiety. Endocrine: Complains of hypothyroidism, obesity, BMI of 30+ and diabetes insipidus treated by DDAVP. Hematological: Nil. Infectious Disease: Reports chickenpox, mumps. Oncological: History of Hodgkin lymphoma. Dermatologic: She reports questionable cellulitis. MEDICATIONS: Include: 1. Acetaminophen extra strength 1000 mg q.6 hours on a p.r.n. basis. 2. Desmopressin 0.1% nasal spray b.i.d. 3. Lisinopril 40 mg b.i.d. 4. Verapamil HCL 240 mg ER once daily. 5. Diclofenac sodium 75 mg b.i.d. on a p.r.n. basis. 6. Levothyroxine 125 mcg daily. 7. Simvastatin; Zocor 20 mg at bedtime. 8. Amlodipine 2.5 mg daily. 9. Keflex 500 mg q.8 hours. 10.Benadryl 50 mg q.6 hours on a p.r.n. basis. SOCIAL/PERSONAL HISTORY: Tobacco use; no. Caffeine use; uses intake of coffee and tea. Living situation; the patient is . Occupation; employed. FAMILY HISTORY: No past significant family history. REVIEW OF SYSTEMS: HEAD AND NECK: No complaints. EYES: No complaints. EARS, NOSE, AND THROAT: No complaints. NECK: No complaints. CHEST: See present history. LUNGS: See present history. ABDOMEN: See present history. SKIN: See present history including rash. MUSCULOSKELETAL SYSTEM: No complaints. NEUROLOGICAL: No complaints. GI/BOILER TUBE BLOWER SYSTEMS: No complaints. PHYSICAL EXAMINATION: VITAL SIGNS: Temperature 100.5, pulse 120, respirations 28, blood pressure 130/80, oxygen saturation 93.1%. The patient is given saline. GENERAL: Reveals a very pleasant patient in no immediate distress. She is alert, well oriented to space, time, and person. She appears to be slightly distressed. HEAD/ENT: Negative. Oral mucous membranes moist. EYES: No arcus senilis. No icterus. No injection. NECK: Supple. Full range of motion. No midline swelling. No lymph nodes enlarged. Thyroid gland not enlarged. LUNGS: Clear to percussion and auscultation. She does have some fine rhonchi. CARDIAC: S1 and S2. Slight tachycardia. ABDOMEN: Soft. No tenderness. No masses. EXTREMITIES: Lower extremities; 1+ pitting edema of both lower extremities. Changes of chronic venous insufficiency noted. Homans sign is negative. SKIN: There is a maculopapular rash, diffuse rash present on the forearms, part of the trunk anteriorly, posteriorly, especially in the armpits, also in the legs. She states the rash is not pruritic today. : Deferred. RECTAL: Deferred. DIAGNOSTIC: EKG shows normal sinus rhythm. P-wave present. QRS normal. ST- segment depressed. QT normal. LABORATORY DATA: Hemoglobin is 15.8, white count 10.66, MCV is 94.6, normal 92. Neutrophils 83, normal 70. D-dimer is 3460, normal less than 400. Sodium slightly low at 133, normal 136. Potassium chloride normal. Creatinine clearance is greater than 60. Alkaline phosphatase 131, normal 116. Troponin normal. Total protein normal. Albumin normal. Chest x-ray negative for acute cardiopulmonary disease. CT scan; CTA shows no PE, infiltrate, nodule or mass. Unsuccessful IV attempts at blood draws at [facility]; three attempts here in the emergency room; initially Lopressor 2.5 mg was given, heart rate down to 120. There was no evidence of atrial fibrillation. Heart rate remained tachycardia. Another 5 mg IV Lopressor was given, temperature 102.5. Dr. Latham, hydrogenation still operator from [facility] was called. Apparently, they are not accepting any cardiac patients. Advised to keep the patient at this hospital. Advised IV Cardizem drip. Oxygen therapy as necessary. IMPRESSION/PLAN: Final diagnoses include: 1. Acute tachycardia, most likely due to febrile process. 2. Rash of unknown origin. I suspect this is an allergic rash. I do not think it is due to infection. This is diffuse. 3. EKG shows ST-T wave changes. We will have to keep a close eye on her troponin levels. No evidence of CA at this time. D-dimer is elevated, but CTA shows no evidence of pulmonary embolism. 4. COVID is ruled out. 5. Fever and chills. Exact etiology is not determined, still suspect allergic reaction. No cause of infection could be identified at this time. We will treat with Tylenol. Blood cultures have been taken. We will give IV Solu- Cortef 125 mg one dose. For the tachycardia, we will give metoprolol succinate 50 mg now. We will also continue Cardizem drip to keep the heart rate below 100. Maintain IV fluids. We will hold some of the old medications at this time. 6. Status post , status post thyroidectomy, status post cardiac ablation, status post Hodgkin lymphoma, history of hypothyroidism, history of hypercholesterolemia, history of hypertension, history of usage of desmopressin for diabetes insipidus. /[id number]
[2020-10-24] MEDS ORDERED: diphenhydrAMINE 25 MG Cap PO SCH (05:00)
[2020-10-24] MEDS: Levothyroxine 25 MCG Tab PO SCH ×2 (06:07→06:30)
[2020-10-24] MEDS: Levothyroxine 100 MCG Tab PO SCH ×2 (06:08→06:30)
[2020-10-24] MEDS: Enoxaparin 100 MG/1 ML Syringe SUBCUT SCH ×2 (08:27→20:48)
[2020-10-24 08:39] LABS: ANION GAP 12.3 mmol/L (5-15); CHLORIDE,CL 102 mmol/L (98-107); SODIUM,NA 137 mmol/L (136-145)
[2020-10-24] MEDS: hydrOXYzine HCl 25 MG Tab PO SCH ×3 (08:50→20:38)
[2020-10-24] MEDS ORDERED: predniSONE 10 MG Tab PO SCH ×3 (09:00→21:00)
[2020-10-24] MEDS ORDERED: DESMOPRESSIN NAS SCH (09:00)
[2020-10-24] MEDS ORDERED: ALPRAZolam 0.25 MG Tab PO SCH (09:00)
[2020-10-24] MEDS ORDERED: Metoprolol Succinate 25 MG Tab.ER PO SCH (09:00)
[2020-10-24] MEDS ORDERED: Famotidine 20 MG Tab PO SCH (09:00)
--- NOTE | 2020-10-24 09:15 | PCM.PN ---
- General Info Date of Service: 10/24/20 Functional Status: Reports: Pain Controlled - Review of Systems General: Reports: Fatigue. Denies: Fever HEENT: Reports: No Symptoms. Denies: Headaches, Sore Throat Pulmonary: Reports: No Symptoms Cardiovascular: Reports: Palpitations (heart reportedly "does a flip"). Denies: Chest Pain Gastrointestinal: Reports: No Symptoms Genitourinary: Reports: No Symptoms Musculoskeletal: Reports: No Symptoms Skin: Reports: Rash (generalized, macular-papular ) Neurological: Reports: No Symptoms Psychiatric: Reports: No Symptoms - Patient Data Vitals - Most Recent: Last Vital Signs Temp 97.8 F 10/24/20 07:00 Pulse 89 10/24/20 08:50 Resp 20 10/24/20 07:00 BP 128/54 L 10/24/20 08:50 Pulse Ox 96 10/24/20 07:00 Weight - Most Recent: 307 lb 1 oz I&O - Last 24 Hours: Intake & Output 10/23/20 10/24/20 10/24/20 22:59 06:59 14:59 Intake Total 1058 Output Total 600 Balance 458 Lab Results Last 24 Hours: Laboratory Results - last 24 hr 10/23/20 10/23/20 10/23/20 Range/Units 00:50 18:00 18:00 WBC 10.66 H (5.00-10.00) 10^3/uL RBC 4.83 (3.80-5.50) 10^6/uL Hgb 15.8 (12.0-16.0) g/dL Hct 45.7 (37.0-47.0) % MCV 94.6 H D (82.0-92.0) fL MCH 32.7 H (27.0-31.0) pg MCHC 34.6 (32.0-36.0) g/dL RDW 12.9 (11.5-14.5) % Plt Count 218 (150-400) 10^3/uL MPV 8.9 (7.4-10.4) fL Immature Gran % (Auto) (0.0-5.0) % Neut % (Auto) (50.0-70.0) % Lymph % (Auto) (20.0-40.0) % [place] % (Auto) (2.0-8.0) % Eos % (Auto) (1.0-3.0) % Baso % (Auto) (0.0-1.0) % Neut # (Auto) (2.50-7.00) 10^3/uL Lymph # (Auto) (1.00-4.00) 10^3/uL [place] # (Auto) (0.10-0.80) 10^3/uL Eos # (Auto) (0.10-0.30) 10^3/uL Baso # (Auto) (0.00-0.10) 10^3/uL Immature Gran # (Auto) (0.00-0.50) 10^3/uL Add Manual Diff Yes Neutrophils % (Manual) 83 H (50-70) % Lymphocytes % (Manual) 9 L (20-40) % Monocytes % (Manual) 2 (2-8) % Eosinophils % (Manual) 6 H (1-3) % Absolute Neutrophils 8.8478 Lymphocytes # (Manual) 0.9594 Monocytes # (Manual) 0.2132 Eosinophils # (Manual) 0.6396 APTT (22.8-31.4) SEC D-Dimer, Quantitative (<400) ng/mL Sodium 133 L (136-145) mmol/L Potassium 4.0 (3.5-5.1) mmol/L Chloride 97 L (98-107) mmol/L Carbon Dioxide 23.8 (21.0-32.0) mmol/L Anion Gap 16.2 H (5-15) mmol/L BUN 13 (7-18) mg/dL Creatinine 0.79 (0.51-1.17) mg/dL Est Cr Clr Drug Dosing 77.35 mL/min Estimated GFR (MDRD) > 60 mL/min Glucose 75 (70-140) mg/dL Lactic Acid Cancelled Calcium 9.4 (8.7-10.3) mg/dL Total Bilirubin 0.5 (0.2-1.0) mg/dL AST 15 (15-37) U/L ALT 28 (14-63) U/L Alkaline Phosphatase 131 H (46-116) U/L Troponin I High Sens 10.500 (0-51.000) pg/mL Total Protein 8.1 (6.4-8.2) g/dL Albumin 3.52 (3.40-5.00) g/dL Specimen Type Urine Color (YELLOW) Urine Appearance (CLEAR) Urine pH (5.0-9.0) Ur Specific [place] (1.005-1.030) Urine Protein (NEGATIVE) mg/dL Urine Glucose (UA) (NEGATIVE) mg/dL Urine Ketones (NEGATIVE) mg/dL Urine Occult Blood (NEGATIVE) Urine Nitrite (NEGATIVE) Urine Bilirubin (NEGATIVE) Urine Urobilinogen (0.2-1.0) E.U./dL Ur Leukocyte Esterase (NEGATIVE) Urine RBC (0-5) /HPF Urine WBC (0-5) /HPF Ur Epithelial Cells /LPF Urine Bacteria (NONE TO FEW) /HPF 10/23/20 10/23/20 10/23/20 Range/Units 18:00 18:00 21:56 WBC (5.00-10.00) 10^3/uL RBC (3.80-5.50) 10^6/uL Hgb (12.0-16.0) g/dL Hct (37.0-47.0) % MCV (82.0-92.0) fL MCH (27.0-31.0) pg MCHC (32.0-36.0) g/dL RDW (11.5-14.5) % Plt Count (150-400) 10^3/uL MPV (7.4-10.4) fL Immature Gran % (Auto) (0.0-5.0) % Neut % (Auto) (50.0-70.0) % Lymph % (Auto) (20.0-40.0) % [place] % (Auto) (2.0-8.0) % Eos % (Auto) (1.0-3.0) % Baso % (Auto) (0.0-1.0) % Neut # (Auto) (2.50-7.00) 10^3/uL Lymph # (Auto) (1.00-4.00) 10^3/uL [place] # (Auto) (0.10-0.80) 10^3/uL Eos # (Auto) (0.10-0.30) 10^3/uL Baso # (Auto) (0.00-0.10) 10^3/uL Immature Gran # (Auto) (0.00-0.50) 10^3/uL Add Manual Diff Neutrophils % (Manual) (50-70) % Lymphocytes % (Manual) (20-40) % Monocytes % (Manual) (2-8) % Eosinophils % (Manual) (1-3) % Absolute Neutrophils Lymphocytes # (Manual) Monocytes # (Manual) Eosinophils # (Manual) APTT 20.7 L (22.8-31.4) SEC D-Dimer, Quantitative 3460 H (<400) ng/mL Sodium (136-145) mmol/L Potassium (3.5-5.1) mmol/L Chloride (98-107) mmol/L Carbon Dioxide (21.0-32.0) mmol/L Anion Gap (5-15) mmol/L BUN (7-18) mg/dL Creatinine (0.51-1.17) mg/dL Est Cr Clr Drug Dosing mL/min Estimated GFR (MDRD) mL/min Glucose (70-140) mg/dL Lactic Acid Calcium (8.7-10.3) mg/dL Total Bilirubin (0.2-1.0) mg/dL AST (15-37) U/L ALT (14-63) U/L Alkaline Phosphatase (46-116) U/L Troponin I High Sens (0-51.000) pg/mL Total Protein (6.4-8.2) g/dL Albumin (3.40-5.00) g/dL Specimen Type Urincc Urine Color Dark yellow H (YELLOW) Urine Appearance Slightly cloudy H (CLEAR) Urine pH 7.0 (5.0-9.0) Ur Specific [place] 1.010 (1.005-1.030) Urine Protein Trace H (NEGATIVE) mg/dL Urine Glucose (UA) Negative (NEGATIVE) mg/dL Urine Ketones Trace H (NEGATIVE) mg/dL Urine Occult Blood Moderate H (NEGATIVE) Urine Nitrite Negative (NEGATIVE) Urine Bilirubin Small H (NEGATIVE) Urine Urobilinogen 1.0 (0.2-1.0) E.U./dL Ur Leukocyte Esterase Negative (NEGATIVE) Urine RBC 10-20 H (0-5) /HPF Urine WBC 0-5 (0-5) /HPF Ur Epithelial Cells Moderate H /LPF Urine Bacteria Few (NONE TO FEW) /HPF 10/24/20 10/24/20 10/24/20 Range/Units 00:50 07:55 07:55 WBC 13.61 H (5.00-10.00) 10^3/uL RBC 4.63 (3.80-5.50) 10^6/uL Hgb 15.0 (12.0-16.0) g/dL Hct 45.0 (37.0-47.0) % MCV 97.2 H (82.0-92.0) fL MCH 32.4 H (27.0-31.0) pg MCHC 33.3 (32.0-36.0) g/dL RDW 13.0 (11.5-14.5) % Plt Count 212 (150-400) 10^3/uL MPV 8.6 (7.4-10.4) fL Immature Gran % (Auto) 0.7 (0.0-5.0) % Neut % (Auto) 78.8 H (50.0-70.0) % Lymph % (Auto) 9.1 L (20.0-40.0) % [place] % (Auto) 6.8 (2.0-8.0) % Eos % (Auto) 4.4 H (1.0-3.0) % Baso % (Auto) 0.2 (0.0-1.0) % Neut # (Auto) 10.72 H (2.50-7.00) 10^3/uL Lymph # (Auto) 1.24 (1.00-4.00) 10^3/uL [place] # (Auto) 0.93 H (0.10-0.80) 10^3/uL Eos # (Auto) 0.60 H (0.10-0.30) 10^3/uL Baso # (Auto) 0.03 (0.00-0.10) 10^3/uL Immature Gran # (Auto) 0.09 (0.00-0.50) 10^3/uL Add Manual Diff Neutrophils % (Manual) (50-70) % Lymphocytes % (Manual) (20-40) % Monocytes % (Manual) (2-8) % Eosinophils % (Manual) (1-3) % Absolute Neutrophils Lymphocytes # (Manual) Monocytes # (Manual) Eosinophils # (Manual) APTT (22.8-31.4) SEC D-Dimer, Quantitative (<400) ng/mL Sodium 137 (136-145) mmol/L Potassium 4.0 (3.5-5.1) mmol/L Chloride 102 (98-107) mmol/L Carbon Dioxide 26.7 (21.0-32.0) mmol/L Anion Gap 12.3 (5-15) mmol/L BUN 9 (7-18) mg/dL Creatinine 0.82 (0.51-1.17) mg/dL Est Cr Clr Drug Dosing 74.52 mL/min Estimated GFR (MDRD) > 60 mL/min Glucose 100 (70-140) mg/dL Lactic Acid 2.0 Calcium 8.7 (8.7-10.3) mg/dL Total Bilirubin 0.6 (0.2-1.0) mg/dL AST 12 L (15-37) U/L ALT 23 (14-63) U/L Alkaline Phosphatase 110 (46-116) U/L Troponin I High Sens (0-51.000) pg/mL Total Protein 6.9 (6.4-8.2) g/dL Albumin 2.75 L (3.40-5.00) g/dL Specimen Type Urine Color (YELLOW) Urine Appearance (CLEAR) Urine pH (5.0-9.0) Ur Specific [place] (1.005-1.030) Urine Protein (NEGATIVE) mg/dL Urine Glucose (UA) (NEGATIVE) mg/dL Urine Ketones (NEGATIVE) mg/dL Urine Occult Blood (NEGATIVE) Urine Nitrite (NEGATIVE) Urine Bilirubin (NEGATIVE) Urine Urobilinogen (0.2-1.0) E.U./dL Ur Leukocyte Esterase (NEGATIVE) Urine RBC (0-5) /HPF Urine WBC (0-5) /HPF Ur Epithelial Cells /LPF Urine Bacteria (NONE TO FEW) /HPF Med Orders - Current: Current Medications Acetaminophen (Acetaminophen 325 Mg Tab) 650 mg PO Q4H PRN PRN Reason: Fever Last Admin: 10/23/20 23:56 Dose: 650 mg Documented by: Enoxaparin Sodium (Enoxaparin 100 Mg/1 Ml Syringe) 100 mg SUBCUT Q12H [facility] Last Admin: 10/24/20 08:27 Dose: 100 mg Documented by: Famotidine (Famotidine 20 Mg Tab) 20 mg PO DAILY [facility] Last Admin: 10/24/20 08:50 Dose: 20 mg Documented by: Hydroxyzine HCl (Hydroxyzine Hcl 25 Mg Tab) 25 mg PO Q6H [facility] Last Admin: 10/24/20 08:50 Dose: 25 mg Documented by: Diltiazem HCl 125 mg/ Sodium (Chloride) 125 mls @ 5 mls/hr IV TITRATE [facility]; Protocol Last Infusion: 10/24/20 08:26 Dose: 10 mg/hr, 10 mls/hr Documented by: Sodium Chloride (Normal Saline) 1,000 mls @ 100 mls/hr IV ASDIRECTED [facility] Last Admin: 10/23/20 23:56 Dose: 100 mls/hr Documented by: Levothyroxine Sodium (Levothyroxine 100 Mcg Tab) 100 mcg PO ACBREAKFAST [facility] Last Admin: 10/24/20 06:30 Dose: Not Given Documented by: Levothyroxine Sodium (Levothyroxine 25 Mcg Tab) 25 mcg PO ACBREAKFAST [facility] Last Admin: 10/24/20 06:30 Dose: Not Given Documented by: Metoprolol Succinate (Metoprolol Succinate 25 Mg Tab.Er) 25 mg PO DAILY [facility] Last Admin: 10/24/20 08:50 Dose: 25 mg Documented by: Desmopressin 10 Mcg/0.1 Ml Bottle # Patient's Own Medication# 1 spray FRANCOISE BID [facility] Prednisone (Prednisone 10 Mg Tab) 20 mg PO BID [facility] Sodium Chloride (Sodium Chloride 0.9% 10 Ml Syringe) 10 ml FLUSH Q8HR PRN PRN Reason: keep vein open Discontinued Medications Acetaminophen (Acetaminophen 500 Mg Tab) 1,000 mg PO ONETIME ONE Stop: 10/23/20 19:25 Last Admin: 10/23/20 19:27 Dose: 1,000 mg Documented by: Acetaminophen (Acetaminophen 500 Mg Tab) 1,000 mg PO Q6H PRN PRN Reason: Fever Greater Than 101 Acetaminophen (Acetaminophen 500 Mg Tab) 1,000 mg PO Q6H PRN PRN Reason: Pain Alprazolam (Alprazolam 0.25 Mg Tab) 0.25 mg PO BID [facility] Diltiazem HCl (Diltiazem 25 Mg/5 Ml Sdv) 20 mg IVPUSH ONETIME ONE Stop: 10/23/20 21:09 Last Admin: 10/23/20 21:45 Dose: 20 mg Documented by: Diltiazem HCl (Diltiazem 25 Mg/5 Ml Sdv) 5 mg IVPUSH ONETIME ONE Stop: 10/24/20 00:06 Last Admin: 10/24/20 00:15 Dose: 5 mg Documented by: Diltiazem HCl (Diltiazem 25 Mg/5 Ml Sdv) 5 mg IVPUSH ONETIME ONE Stop: 10/24/20 01:23 Last Admin: 10/24/20 01:32 Dose: 5 mg Documented by: Diphenhydramine HCl (Diphenhydramine 25 Mg Cap) 50 mg PO ONETIME ONE Stop: 10/23/20 21:04 Last Admin: 10/23/20 21:40 Dose: 50 mg Documented by: Diphenhydramine HCl (Diphenhydramine 25 Mg Cap) 50 mg PO Q6HR PRN PRN Reason: Itching Diphenhydramine HCl (Diphenhydramine 25 Mg Cap) 50 mg PO Q6HR [facility] Last Admin: 10/24/20 06:07 Dose: 50 mg Documented by: Hydrocortisone Sodium Succinate (Hydrocortisone Sodium Succinate 100 Mg/2 Ml Sdv) 100 mg IVPUSH ONETIME ONE Stop: 10/23/20 21:17 Last Admin: 10/23/20 21:40 Dose: 100 mg Documented by: Sodium Chloride (Normal Saline) 100 mls @ 200 mls/hr IV ASDIRECTED [facility] Last Admin: 10/23/20 19:07 Dose: 200 mls/hr Documented by: Sodium Chloride (Normal Saline) 1,000 mls @ 999 mls/hr IV .BOLUS ONE Stop: 10/23/20 21:32 Last Admin: 10/23/20 20:43 Dose: 999 mls/hr Documented by: Diltiazem HCl 125 mg/ Sodium (Chloride) 125 mls @ 20 mls/hr IV TITRATE [facility] Diltiazem HCl 125 mg/ Sodium (Chloride) 125 mls @ 5 mls/hr IV TITRATE [facility] Last Admin: 10/23/20 22:08 Dose: 5 mg/hr, 5 mls/hr Documented by: Iopamidol (Iopamidol 755 Mg/Ml 75 Ml Bottle) 75 ml IVPUSH ONETIME ONE Stop: 10/23/20 19:34 Last Admin: 10/23/20 19:07 Dose: 75 ml Documented by: Metoprolol Succinate (Metoprolol Succinate 50 Mg Tab.Er) 50 mg PO ONETIME ONE Stop: 10/24/20 21:16 Metoprolol Succinate (Metoprolol Succinate 25 Mg Tab.Er) 25 mg PO ONETIME ONE Stop: 10/23/20 22:24 Last Admin: 10/23/20 23:08 Dose: 25 mg Documented by: Metoprolol Tartrate (Metoprolol Tartrate 5 Mg/5 Ml Sdv) 2.5 mg IVPUSH ONETIME ONE Stop: 10/23/20 17:42 Last Admin: 10/23/20 18:14 Dose: 2.5 mg Documented by: Metoprolol Tartrate (Metoprolol Tartrate 5 Mg/5 Ml Sdv) 5 mg IVPUSH ONETIME ONE Stop: 10/23/20 18:31 Last Admin: 10/23/20 18:40 Dose: 5 mg Documented by: Prednisone (Prednisone 10 Mg Tab) 10 mg PO BID [facility] Last Admin: 10/24/20 08:50 Dose: 10 mg Documented by: - Exam Quality Assessment: DVT Prophylaxis. No: Supplemental Oxygen, Urine Catheter General: Alert, Oriented, Cooperative, No Acute Distress HEENT: Pupils Equal, Pupils Reactive, Mucous Membr. Moist/[place] Neck: Supple Lungs: Clear to Auscultation, Normal Respiratory Effort Cardiovascular: Regular Rate (atrial flutter), Irregular Rhythm, Murmurs GI/Abdominal Exam: Normal Bowel Sounds, Soft, Non-Tender, No Distention (Female) Exam: Deferred Back Exam: Normal Inspection Extremities: Non-Tender, Normal Capillary Refill, Pedal Edema (non-pitting), Other (brown discoloration). 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) Time: 09:20 Rhythm: A-Flutter Rate (Beats/Min): 93 [place]: Normal P-Wave: Absent QRS: Normal ST-T: Other (Non-specific abnormality) QT: Normal Comparison: Change From Previous EKG (prior EKG indicated sinus tachycardia) - Patient Data Lab Results Last 24 hrs: Laboratory Results - last 24 hr 10/23/20 10/23/20 10/23/20 Range/Units 00:50 18:00 18:00 WBC 10.66 H (5.00-10.00) 10^3/uL RBC 4.83 (3.80-5.50) 10^6/uL Hgb 15.8 (12.0-16.0) g/dL Hct 45.7 (37.0-47.0) % MCV 94.6 H D (82.0-92.0) fL MCH 32.7 H (27.0-31.0) pg MCHC 34.6 (32.0-36.0) g/dL RDW 12.9 (11.5-14.5) % Plt Count 218 (150-400) 10^3/uL MPV 8.9 (7.4-10.4) fL Immature Gran % (Auto) (0.0-5.0) % Neut % (Auto) (50.0-70.0) % Lymph % (Auto) (20.0-40.0) % [place] % (Auto) (2.0-8.0) % Eos % (Auto) (1.0-3.0) % Baso % (Auto) (0.0-1.0) % Neut # (Auto) (2.50-7.00) 10^3/uL Lymph # (Auto) (1.00-4.00) 10^3/uL [place] # (Auto) (0.10-0.80) 10^3/uL Eos # (Auto) (0.10-0.30) 10^3/uL Baso # (Auto) (0.00-0.10) 10^3/uL Immature Gran # (Auto) (0.00-0.50) 10^3/uL Add Manual Diff Yes Neutrophils % (Manual) 83 H (50-70) % Lymphocytes % (Manual) 9 L (20-40) % Monocytes % (Manual) 2 (2-8) % Eosinophils % (Manual) 6 H (1-3) % Absolute Neutrophils 8.8478 Lymphocytes # (Manual) 0.9594 Monocytes # (Manual) 0.2132 Eosinophils # (Manual) 0.6396 APTT (22.8-31.4) SEC D-Dimer, Quantitative (<400) ng/mL Sodium 133 L (136-145) mmol/L Potassium 4.0 (3.5-5.1) mmol/L Chloride 97 L (98-107) mmol/L Carbon Dioxide 23.8 (21.0-32.0) mmol/L Anion Gap 16.2 H (5-15) mmol/L BUN 13 (7-18) mg/dL Creatinine 0.79 (0.51-1.17) mg/dL Est Cr Clr Drug Dosing 77.35 mL/min Estimated GFR (MDRD) > 60 mL/min Glucose 75 (70-140) mg/dL Lactic Acid Cancelled Calcium 9.4 (8.7-10.3) mg/dL Total Bilirubin 0.5 (0.2-1.0) mg/dL AST 15 (15-37) U/L ALT 28 (14-63) U/L Alkaline Phosphatase 131 H (46-116) U/L Troponin I High Sens 10.500 (0-51.000) pg/mL Total Protein 8.1 (6.4-8.2) g/dL Albumin 3.52 (3.40-5.00) g/dL Specimen Type Urine Color (YELLOW) Urine Appearance (CLEAR) Urine pH (5.0-9.0) Ur Specific [place] (1.005-1.030) Urine Protein (NEGATIVE) mg/dL Urine Glucose (UA) (NEGATIVE) mg/dL Urine Ketones (NEGATIVE) mg/dL Urine Occult Blood (NEGATIVE) Urine Nitrite (NEGATIVE) Urine Bilirubin (NEGATIVE) Urine Urobilinogen (0.2-1.0) E.U./dL Ur Leukocyte Esterase (NEGATIVE) Urine RBC (0-5) /HPF Urine WBC (0-5) /HPF Ur Epithelial Cells /LPF Urine Bacteria (NONE TO FEW) /HPF 10/23/20 10/23/20 10/23/20 Range/Units 18:00 18:00 21:56 WBC (5.00-10.00) 10^3/uL RBC (3.80-5.50) 10^6/uL Hgb (12.0-16.0) g/dL Hct (37.0-47.0) % MCV (82.0-92.0) fL MCH (27.0-31.0) pg MCHC (32.0-36.0) g/dL RDW (11.5-14.5) % Plt Count (150-400) 10^3/uL MPV (7.4-10.4) fL Immature Gran % (Auto) (0.0-5.0) % Neut % (Auto) (50.0-70.0) % Lymph % (Auto) (20.0-40.0) % [place] % (Auto) (2.0-8.0) % Eos % (Auto) (1.0-3.0) % Baso % (Auto) (0.0-1.0) % Neut # (Auto) (2.50-7.00) 10^3/uL Lymph # (Auto) (1.00-4.00) 10^3/uL [place] # (Auto) (0.10-0.80) 10^3/uL Eos # (Auto) (0.10-0.30) 10^3/uL Baso # (Auto) (0.00-0.10) 10^3/uL Immature Gran # (Auto) (0.00-0.50) 10^3/uL Add Manual Diff Neutrophils % (Manual) (50-70) % Lymphocytes % (Manual) (20-40) % Monocytes % (Manual) (2-8) % Eosinophils % (Manual) (1-3) % Absolute Neutrophils Lymphocytes # (Manual) Monocytes # (Manual) Eosinophils # (Manual) APTT 20.7 L (22.8-31.4) SEC D-Dimer, Quantitative 3460 H (<400) ng/mL Sodium (136-145) mmol/L Potassium (3.5-5.1) mmol/L Chloride (98-107) mmol/L Carbon Dioxide (21.0-32.0) mmol/L Anion Gap (5-15) mmol/L BUN (7-18) mg/dL Creatinine (0.51-1.17) mg/dL Est Cr Clr Drug Dosing mL/min Estimated GFR (MDRD) mL/min Glucose (70-140) mg/dL Lactic Acid Calcium (8.7-10.3) mg/dL Total Bilirubin (0.2-1.0) mg/dL AST (15-37) U/L ALT (14-63) U/L Alkaline Phosphatase (46-116) U/L Troponin I High Sens (0-51.000) pg/mL Total Protein (6.4-8.2) g/dL Albumin (3.40-5.00) g/dL Specimen Type Urincc Urine Color Dark yellow H (YELLOW) Urine Appearance Slightly cloudy H (CLEAR) Urine pH 7.0 (5.0-9.0) Ur Specific [place] 1.010 (1.005-1.030) Urine Protein Trace H (NEGATIVE) mg/dL Urine Glucose (UA) Negative (NEGATIVE) mg/dL Urine Ketones Trace H (NEGATIVE) mg/dL Urine Occult Blood Moderate H (NEGATIVE) Urine Nitrite Negative (NEGATIVE) Urine Bilirubin Small H (NEGATIVE) Urine Urobilinogen 1.0 (0.2-1.0) E.U./dL Ur Leukocyte Esterase Negative (NEGATIVE) Urine RBC 10-20 H (0-5) /HPF Urine WBC 0-5 (0-5) /HPF Ur Epithelial Cells Moderate H /LPF Urine Bacteria Few (NONE TO FEW) /HPF 10/24/20 10/24/20 10/24/20 Range/Units 00:50 07:55 07:55 WBC 13.61 H (5.00-10.00) 10^3/uL RBC 4.63 (3.80-5.50) 10^6/uL Hgb 15.0 (12.0-16.0) g/dL Hct 45.0 (37.0-47.0) % MCV 97.2 H (82.0-92.0) fL MCH 32.4 H (27.0-31.0) pg MCHC 33.3 (32.0-36.0) g/dL RDW 13.0 (11.5-14.5) % Plt Count 212 (150-400) 10^3/uL MPV 8.6 (7.4-10.4) fL Immature Gran % (Auto) 0.7 (0.0-5.0) % Neut % (Auto) 78.8 H (50.0-70.0) % Lymph % (Auto) 9.1 L (20.0-40.0) % [place] % (Auto) 6.8 (2.0-8.0) % Eos % (Auto) 4.4 H (1.0-3.0) % Baso % (Auto) 0.2 (0.0-1.0) % Neut # (Auto) 10.72 H (2.50-7.00) 10^3/uL Lymph # (Auto) 1.24 (1.00-4.00) 10^3/uL [place] # (Auto) 0.93 H (0.10-0.80) 10^3/uL Eos # (Auto) 0.60 H (0.10-0.30) 10^3/uL Baso # (Auto) 0.03 (0.00-0.10) 10^3/uL Immature Gran # (Auto) 0.09 (0.00-0.50) 10^3/uL Add Manual Diff Neutrophils % (Manual) (50-70) % Lymphocytes % (Manual) (20-40) % Monocytes % (Manual) (2-8) % Eosinophils % (Manual) (1-3) % Absolute Neutrophils Lymphocytes # (Manual) Monocytes # (Manual) Eosinophils # (Manual) APTT (22.8-31.4) SEC D-Dimer, Quantitative (<400) ng/mL Sodium 137 (136-145) mmol/L Potassium 4.0 (3.5-5.1) mmol/L Chloride 102 (98-107) mmol/L Carbon Dioxide 26.7 (21.0-32.0) mmol/L Anion Gap 12.3 (5-15) mmol/L BUN 9 (7-18) mg/dL Creatinine 0.82 (0.51-1.17) mg/dL Est Cr Clr Drug Dosing 74.52 mL/min Estimated GFR (MDRD) > 60 mL/min Glucose 100 (70-140) mg/dL Lactic Acid 2.0 Calcium 8.7 (8.7-10.3) mg/dL Total Bilirubin 0.6 (0.2-1.0) mg/dL AST 12 L (15-37) U/L ALT 23 (14-63) U/L Alkaline Phosphatase 110 (46-116) U/L Troponin I High Sens (0-51.000) pg/mL Total Protein 6.9 (6.4-8.2) g/dL Albumin 2.75 L (3.40-5.00) g/dL Specimen Type Urine Color (YELLOW) Urine Appearance (CLEAR) Urine pH (5.0-9.0) Ur Specific Cunningham (1.005-1.030) Urine Protein (NEGATIVE) mg/dL Urine Glucose (UA) (NEGATIVE) mg/dL Urine Ketones (NEGATIVE) mg/dL Urine Occult Blood (NEGATIVE) Urine Nitrite (NEGATIVE) Urine Bilirubin (NEGATIVE) Urine Urobilinogen (0.2-1.0) E.U./dL Ur Leukocyte Esterase (NEGATIVE) Urine RBC (0-5) /HPF Urine WBC (0-5) /HPF Ur Epithelial Cells /LPF Urine Bacteria (NONE TO FEW) /HPF Result Diagrams: 10/24/20 07:55 10/24/20 07:55 Sepsis Event Note - Evaluation Sepsis Screening Result: Sepsis Risk - Focused Exam Vital Signs: Vital Signs Temp Temp Pulse Pulse Resp BP BP 10/24/20 08:50 89 128/54 L 10/24/20 07:00 97.8 F 70 20 104/60 10/24/20 05:00 72 118/61 10/24/20 04:00 73 126/80 10/24/20 03:00 97.1 F 85 20 111/67 10/24/20 02:00 92 105/69 10/24/20 01:30 124 H 95/56 L 10/24/20 01:00 117 H 106/75 10/24/20 00:45 115 H 99/63 10/24/20 00:30 110 H 103/73 10/24/20 00:26 99.6 F 10/24/20 00:15 128 H 114/69 10/24/20 00:00 121 H 113/72 10/23/20 23:56 100.3 F 10/23/20 23:45 129 H 102/70 10/23/20 23:30 124 H 115/68 10/23/20 23:15 131 H 96/61 10/23/20 23:08 132 H 92/66 10/23/20 23:00 100.3 F 134 H 22 H 92/66 10/23/20 22:45 127 H 102/70 10/23/20 22:30 123 H 119/65 10/23/20 22:15 124 H 102/60 10/23/20 22:00 132 H 101/62 10/23/20 21:45 132 H 98/63 Pulse Ox 10/24/20 08:50 10/24/20 07:00 96 10/24/20 05:00 10/24/20 04:00 10/24/20 03:00 93 L 10/24/20 02:00 10/24/20 01:30 10/24/20 01:00 10/24/20 00:45 10/24/20 00:30 10/24/20 00:26 10/24/20 00:15 10/24/20 00:00 10/23/20 23:56 10/23/20 23:45 10/23/20 23:30 10/23/20 23:15 10/23/20 23:08 10/23/20 23:00 94 L 10/23/20 22:45 10/23/20 22:30 10/23/20 22:15 10/23/20 22:00 10/23/20 21:45 - Problem List Review Problem List Initiated/Reviewed/Updated: Yes - My Orders Last 24 Hours: My Active Orders 10/24/20 09:05 EKG 12 Lead [EK] Urgent 10/24/20 09:06 EKG Documentation Completion [RC] ASDIRECTED 10/24/20 09:09 TROPONIN I HIGH SENSITIVITY [CHEM] Routine 10/24/20 09:15 predniSONE 20 mg PO BID - Plan Plan:: HPI summary: Patient was initially evaluated today 10/23/20 at [facility] by Dr Harp. She had complained of chest pain described as an ache and heaviness. The pain had been persisting for the past few weeks with increased severity prior to office visit. Of note, patient was scheduled for nuclear stress test 10/22/20, however this was cancelled due to current rash of unknown origin and febrile illness. Patient had presented to [facility] ED on 10/21/20 and started on a course of cephalexin for possible cellulitis, though the rash was rather generalized. She was also given tylenol, prednisone and benadryl for possible allergic reaction. Temp was 103.4 in ER, labs were overall unimpressive. Patient has a history of AV node ablation about five years ago for atrial fibrillation, she has reportedly continued to have arrhythmia at times s/p ablation. She has several cardiac risk factors including obesity, hyperlipidemia, cigarette smoking and concern for angina during clinic visit 10/23/20 prompted initial cardiac workup in clinic as well as ASA 324mg and SL nitro X1 dose with improvement in reported chest pain symptoms. EKG was obtained in clinic noting ST changes most notable in the anterolateral leads. Labs draws were unsuccessful on three attempts in clinic which prompted patient to be transported to the ER to prevent further delay in evaluation and diagnostics given chest pain and febrile illness. Patient was sent to [facility] ER by EMS. COVID test in clinic was negative. ED course: Patient arrived to ER by EMS. Blood pressure mildly hypotensive upon arrival to ER and attributed to nitro given in clinic. HR 150 and irregular. IV fluid bolus given in ER. D-dimer elevated at 3460, CTA negative for PE. Troponin negative. UA negative. CXR negative. Hgb 15.8, WBC 10.66. Alk phos slightly elevated at 133. Lactic acid normal. Patient initially given lopressor 2.5mg IV after which HR was 120. No evidence of atrial fib. Additional 5mg IV lopressor given. Phone call placed to one call and case discussed with Dr Latham. No availability currently for cardiac patients in [place], advised to start cardizem drip and manage patient locally; apply O2 PRN. Hospital course: 10/24/20 - Cardizem gtt continues at 10mg. 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 Oral prednisone started today at 20mg PO BID, slight increase in WBC today to 13.61 attributed to parenteral corticosteroids given last evening, no indication for antibiotics at this time. Troponin repeated this morning and was again negative. Denies CP today, SOB, nausea. Afebrile this am. Patient was given benadryl overnight, however this was overly sedating, atarax and pepcid started this morning per Dr Zuluaga. Calamine lotion BID PRN added for itching. Murmur noted on exam. Last echo on file from 01/16/20 was without significant change from prior echo; EF 65%, grade 1 LV diastolic dysfunction, mild left ventricular and right atrial dilation, Trivial valvular regurgitation. Last TSH 3.47 on 05/18/20. Hospitalization problems and plan: # Tachycardia - Rhythm ST in ER and initially upon admit - Patient was given metoprolol succinate 50mg x 1, metoprolol succinate 25mg PO daily ordered by Dr Zuluaga - Cardizem 25mg IV bolus given prior to start of gtt initiated per cardiology recommendation to maintain HR < 100. 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 - Continue cardizem gtt at 10mg/hr - Continue metoprolol 25mg PO daily # Chest pain, unspecified type; improved - EKG ST with nonspecific ST wave abnormalities - Troponin negative, repeated troponin this morning, again negative. # Fever of unknown origin - T reportedly 102-103 - tylenol 650mg PRN - Blood cultures pending x 2 - Urine culture pending - Afebrile this morning, continue vitals Q4H # Generalized macular-papular rash - possible allergic reaction; no obvious signs of infectious process, no antibiotics initiated - patient given solucortef 100mg per Dr Zuluaga and to start oral prednisone today with 20mg PO BID dosing per Dr Zuluaga. - Benadryl started upon admit last night; discontinued this am due to oversedation. - Atarax 25mg Q6H, pepcid 20mg PO daily for anti-histaminic effect started per Dr Zuluaga - Added calamine lotion BID PRN Elevated D-dimer - Lovenox 100mg BID per Dr Zuluaga Chronic, stable conditions: # Hypertension - takes lisinopril 40mg PO BID, verapamil 240mg ER PO daily, amlodipine 2.5mg PO daily at home (ON HOLD) # s/p ablation of atrial fibrillation # Hyperlipidemia - takes simvastatin 20mg PO daily at home (ON HOLD) # Hypothyroidism - takes levothyroxine 125mcg PO daily at home, continue home med # Diabetes insipidus - takes desmopressin 0.1% nasal spray BID, continue home med # History of hodgkins disease # Tobacco use disorder - current everyday smoker - refusing nicotine patch # Restless legs syndrome # Chronic back pain - takes diclofenac 75mg PO BID PRN (ON HOLD) # Chronic bilateral hip pain # Obesity, unspecified classification, unspecified obesity type, unspecified whether serious comorbidity present Hospitalization details: # FEN: IVF @ 100ml/hr, electrolytes stable, heart healthy diet # PPX: Lovenox 100mg PO BID # Code status: FULL CODE # Disposition: Patient continued on observation status today, if patient remains in atrial flutter may need to transfer patient to [place] for further interventions per cardiology based on bed availability. Patient would need to be changed to inpatient status if patient to stay in [place] past 10/25/20.
[2020-10-24] MEDS ORDERED: predniSONE 10 MG Tab PO ONE (09:48)
[2020-10-24] MEDS ORDERED: Calamine/Zinc Oxide Lotion 118 ML Bottle TOP PRN (09:59)
[2020-10-24] MEDS: Sodium Chloride 0.9% 1,000 ML IV SCH (12:41)
[2020-10-24] MEDS ORDERED: Rivaroxaban 10 MG Tab ONE (20:34)
[2020-10-24] MEDS ORDERED: Amiodarone/Dextrose,Iso-Osmotic 150 MG/100 ML Premix Bag IV ONE (20:45)
[2020-10-24] MEDS ORDERED: Rivaroxaban 10 MG Tab PO STA (20:47)
[2020-10-24] MEDS ORDERED: Amiodarone In Dextrose,Iso-Osm 360 MG in Premix Bag 1 BAG IV SCH ×2 (20:47)
[2020-10-24] MEDS ORDERED: Metoprolol Succinate 50 MG Tab.ER PO ONE (21:15)
[2020-10-24 23:38] VITALS: BP 124/95; PULSE 116
--- NOTE | 2020-10-25 04:01 | PN ---
10/24/2020 PATIENT NAME: GABRIELA TROTTER TIME: 8:30 p.m. I came to see this patient because of persistent atrial flutter. The patient's heart rate is around 110 to 115. Blood pressure is 120/79. Temperature is normal. The patient states that she is feeling some flutter in her chest. No dyspnea. Her urine output. The last 2-hour intake was 1393, output was 600 mL. Rhythm remains in atrial flutter. PHYSICAL EXAMINATION: GENERAL: The patient is alert. EYES: Negative. ENT: Negative. LUNGS: Clear. HEART: Irregular rhythm. Grade 1/6 systolic murmur in the apex. ABDOMEN: Soft. No tenderness. No masses. EXTREMITIES: Reveal some rash. NEUROLOGIC: Intact. SKIN: The patient has a diffuse maculopapular rash that appears to be healing. LABORATORY DATA: Her white count was 13.6, hemoglobin is 15, neutrophils were 78.8%. Electrolytes were normal. BUN and creatinine are normal. Lactic acid level was normal. Urine was clear. Troponin was normal. CTA of the chest was negative for pulmonary embolism. FINAL DIAGNOSES: 1. Atrial flutter continues. 2. The patient with a history of cardiac arrhythmia with failed ablation. 3. Diffuse skin rash most likely noninfectious at this time. 4. The patient has a history of chronic smoking. 5. Hyperlipidemia. 6. Obesity. 7. Question tick bite in September. I placed a call to [place] and discussed the situation both with street department dispatcher, Dr. Luna, and also hospitalist, Dr. Disla. The decision was made that the patient be transferred to [place] for a possible cardioversion in the morning. She will be anticoagulated with Xarelto and the amiodarone drip will be started prior to transfer. I then spent an additional 15 minutes talking to the patient, explaining situation to her, and advising her to be transferred to [facility] via [facility] ambulance. The patient is hemodynamically stable. She is agreeable to this method of treatment. Critical care was approximately half an hour. /[id number]/MODL MTDD
--- NOTE | 2020-10-25 04:06 | DISCH ---
PATIENT PROFILE: The patient is a 60-year-old patient from [place], [place]. HOSPITAL COURSE: The patient was admitted to the hospital and IV Cardizem drip was started. Cardiac consultation with Dr. Latham was obtained at the time of admission. The patient was maintained on Lovenox subcutaneously. Troponin was normal. She had previously completed the course of Keflex and no additional antibiotics were administered during her hospital stay. She was treated with prednisone p.o. Also, IV Solu-Medrol. On , the patient's condition improved slightly, although she remained in atrial flutter. Temperature had come down. Urine output was satisfactory. Skin rash was still present, although better than before. She still complains of some itching. I consulted Cardiology regarding persistent atrial flutter. It was felt that the patient should be started on an amiodarone drip. Also, was started on Xarelto, and the patient transferred to [place] for possible cardioversion in the morning. This was relayed to the patient, who was in agreement. BRIEF HISTORY AND ESSENTIAL PHYSICAL FINDINGS: This patient presented to the emergency room yesterday because of high temperature up to 102, diffuse rash, and tachycardia. The heart rate was felt to be atrial fibrillation/flutter/tachycardia. The patient had previously had a cardiac ablation which has healed. She also presented with a diffuse rash and high temperature. She was admitted to the hospital and workup was performed. Hemoglobin was 15, white count was 13.61 with a neutrophil count of 78.8. Lactic acid level was normal. Urine showed few bacteria only. Chest x-ray was negative. CTA chest with negative pulmonary embolism. EKG showed atrial flutter. D-dimer was less than 400. /[id number]/MODL
== END 2020-10-24 21:52 ==
LOC: KA.ED 17:35 → KA.MS 20:58
PROVIDERS: ADMIT Family Medicine; ATTEND Family Medicine
DX: R07.89 Other chest pain (principal); R21 Rash and other nonspecific skin eruption; R00.0 Tachycardia, unspecified; R50.9 Fever, unspecified; R94.31 Abnormal electrocardiogram [ECG] [EKG]; E87.8 Other disorders of electrolyte and fluid balance, not elsewhere classified; E78.00 Pure hypercholesterolemia, unspecified; I10 Essential (primary) hypertension; G47.30 Sleep apnea, unspecified; E03.9 Hypothyroidism, unspecified; E66.9 Obesity, unspecified; E11.9 Type 2 diabetes mellitus without complications; R79.1 Abnormal coagulation profile; Z20.822 Contact with and (suspected) exposure to COVID-19; Z91.09 Other allergy status, other than to drugs and biological substances; Z79.890 Hormone replacement therapy; Z79.899 Other long term (current) drug therapy
CPT/HCPCS: 36415; 71045; 71275; 80053; 81001; 81003; 83605; 84484; 85025; 85379; 85730; 87040; 93005; 96365; 96366; 96372; 96374; 96375; 96376; 99284; 99285-25; A9270-GY; G0378; J0282; J1650; J1720; J3490; J7030; J7512; Q9967

== ENCOUNTER 2021-08-01 11:59 | Emergency (ER) | payer BC ==
[2021-08-01] MEDS ORDERED: Sodium Chloride 0.9% 10 ML Syringe FLUSH PRN (12:18)
[2021-08-01 12:59] LABS: CHLORIDE,CL 103 mmol/L (98-107); SODIUM,NA 139 mmol/L (136-145)
[2021-08-01 13:13] VITALS: BP 131/68; PULSE 52
== END 2021-08-01 14:10 | disposition home or self-care (01) ==
LOC: KA.ED 11:59
DX: R00.1 Bradycardia, unspecified (principal); R79.1 Abnormal coagulation profile; I48.91 Unspecified atrial fibrillation; E78.00 Pure hypercholesterolemia, unspecified; I10 Essential (primary) hypertension; E03.9 Hypothyroidism, unspecified; E66.9 Obesity, unspecified; Z68.30 Body mass index [BMI] 30.0-30.9, adult; Z91.048 Other nonmedicinal substance allergy status; Z79.899 Other long term (current) drug therapy; Z79.01 Long term (current) use of anticoagulants
CPT/HCPCS: 36415; 71045; 80053; 83880; 84484; 85025; 85379; 85610; 93010; 99284; 99284-25

== ENCOUNTER 2022-07-29 05:34 | Emergency (ER) | payer BC ==
[2022-07-29] MEDS ORDERED: Acetaminophen 500 MG Tab ONE (05:48)
[2022-07-29] MEDS ORDERED: Acetaminophen 500 MG Tab PO ONE (05:49)
[2022-07-29 06:51] LABS: ANION GAP 12.3 mmol/L (5-15)
[2022-07-29 07:25] LABS: RESPIRATORY SYNCYTIAL VIR NAA NEGATIVE (NEGATIVE)
[2022-07-29 07:27] LABS: CORONAVIRUS COVID-19 NAA POSITIVE (NEGATIVE)
[2022-07-29 09:46] VITALS: BP 120/53; PULSE 56
== END 2022-07-29 08:40 | disposition home or self-care (01) ==
LOC: KA.ED 05:34
DX: U07.1 COVID-19 (principal); I48.91 Unspecified atrial fibrillation; E78.00 Pure hypercholesterolemia, unspecified; I10 Essential (primary) hypertension; E03.9 Hypothyroidism, unspecified; E66.9 Obesity, unspecified; Z68.42 Body mass index [BMI] 45.0-49.9, adult; Z91.048 Other nonmedicinal substance allergy status; Z88.8 Allergy status to other drugs, medicaments and biological substances; Z79.01 Long term (current) use of anticoagulants; Z79.899 Other long term (current) drug therapy
CPT/HCPCS: 0241U; 36415; 71045; 80053; 83605; 83880; 84484; 85025; 85610; 87040; 93010; 99284; 99284-25; A9270-GY

== ENCOUNTER 2022-11-05 12:52 | Emergency (ER) | payer BC ==
[2022-11-05 13:12] LABS: BASOPHILS ABSOLUTE AUTO 0.05 10^3/uL (0.00-0.10); BASOPHILS PERCENT AUTO 0.5 % (0.0-1.0); EOSINOPHILS ABSOLUTE AUTO 0.19 10^3/uL (0.10-0.30); EOSINOPHILS PERCENT AUTO 1.9 % (1.0-3.0); HEMOGLOBIN 13.5 g/dL (12.0-16.0); IMMATURE GRAN ABSOLUTE AUTO 0.03 10^3/uL (0.00-0.50); IMMATURE GRAN PERCENT AUTO 0.3 % (0.0-5.0); LYMPHOCYTES ABSOLUTE AUTO 2.62 10^3/uL (1.00-4.00); LYMPHOCYTES PERCENT AUTO 26.8 % (20.0-40.0); MEAN CORPUSCULAR HEMOGLOBIN 32.9 pg (27.0-31.0); MEAN CORPUSCULAR HGB CONC 32.9 g/dL (32.0-36.0); MEAN PLATELET VOLUME 8.5 fL (7.4-10.4); MONOCYTES ABSOLUTE AUTO 0.73 10^3/uL (0.10-0.80); MONOCYTES PERCENT AUTO 7.5 % (2.0-8.0); NEUTROPHILS ABSOLUTE AUTO 6.14 10^3/uL (2.50-7.00); PLATELET COUNT,PLT 313 10^3/uL (150-400); RED CELL DISTRIBUTION WIDTH 13.3 % (11.5-14.5); WHITE BLOOD CELL COUNT,WBC 9.76 10^3/uL (5.00-10.00)
[2022-11-05 13:44] LABS: ALBUMIN 3.19 g/dL (3.40-5.00); ANION GAP 11.6 mmol/L (5-15); BILIRUBIN TOTAL 0.9 mg/dL (0.2-1.0); CALCIUM 8.5 mg/dL (8.7-10.3); CARBON DIOXIDE,CO2 26.2 mmol/L (21.0-32.0); CREATININE 0.69 mg/dL (0.51-1.17); EST CRCL DRUG DOSING (CG) 80.15 mL/min; POTASSIUM,K 3.8 mmol/L (3.5-5.1); PROTEIN TOTAL,TP 7.1 g/dL (6.4-8.2)
[2022-11-05 13:53] LABS: INR 2.3 (0.9-1.1); PROTHROMBIN TIME 21.8 SEC (9.2-11.2)
[2022-11-05 14:04] VITALS: BP 119/67; PULSE 64
== END 2022-11-05 14:18 | disposition home or self-care (01) ==
LOC: KA.ED 12:52
DX: I49.9 Cardiac arrhythmia, unspecified (principal); I48.91 Unspecified atrial fibrillation; I10 Essential (primary) hypertension; E78.00 Pure hypercholesterolemia, unspecified; E11.9 Type 2 diabetes mellitus without complications; E03.9 Hypothyroidism, unspecified; E66.9 Obesity, unspecified; F17.210 Nicotine dependence, cigarettes, uncomplicated; Z68.42 Body mass index [BMI] 45.0-49.9, adult; Z91.048 Other nonmedicinal substance allergy status; Z88.6 Allergy status to analgesic agent; Z79.899 Other long term (current) drug therapy; Z79.01 Long term (current) use of anticoagulants
CPT/HCPCS: 36415; 71045; 80053; 83735; 83880; 84443; 84484; 85025; 85610; 93005; 93010; 99284; 99285